=== PATIENT | female | born 1945 | race Caucasian/White ===

== ENCOUNTER → 2017-02-17 | Outpatient (CLI) | payer MEDICARE, OTHER ==
--- NOTE | 2017-02-17 16:26 | RAD ---
CT of the lumbar spine without contrast, 02/17/2017: History: Back pain, radiculopathy Noncontrast scans were obtained with multiplanar reconstructions produced. There is a radiopaque disc spacer at the L5-S1 level. There are surgical clamps related to the spinous processes at L2-3, L3-4 and L4-5. The lumbar vertebral heights are well-maintained. No acute fracture is identified. There is a mild spondylolisthesis at L4-5. Spinal stimulator leads extend into the thoracic spinal canal. At L1-2 there is mild posterior disc bulging. The central spinal canal and neural foramina are well maintained. At L2-3 there is a vacuum disc phenomena. There is moderate posterior disc bulging as well as posterior marginal spurring which is most prominent laterally on both sides. There are moderate degenerative changes involving the facet joints bilaterally with posterior ligamentous thickening. The combination of findings is causing mild central spinal stenosis in a triangular configuration with the thecal sac measuring 7 mm in AP diameter at the midline. There is moderate bilateral inferior foraminal encroachment, worse on the left. At L3-4 there is moderate broad-based posterior disc bulging. There are moderate degenerative changes involving the facet joints with posterior ligamentous thickening. There is mild associated central spinal stenosis, similar to that seen at L2-3. There is mild inferior foraminal narrowing bilaterally. At L4-5 there is severe disc space narrowing with a vacuum disc phenomena and prominent spurs. There is moderate broad-based posterior disc protrusion. There are extensive hypertrophic degenerative changes involving the facet joints. The combination of findings is causing moderate central spinal stenosis in a triangular configuration as well as severe left foraminal encroachment and moderate right foraminal encroachment. At L5-S1 the disc space is fused posteriorly. There is a moderate posterior spurring at the disc level. There are moderate degenerative changes involving the facet joints. The thecal sac is not significantly stenotic. The neural foramina are widely patent at this level. There is moderate aortoiliac calcific plaquing. The visualized paraspinal soft tissues are otherwise unremarkable. IMPRESSION: 1. Postsurgical change in the lower lumbar spine. 2. Moderately severe multilevel degenerative change as described above. 3. Mild spondylolisthesis due to facet joint arthropathy at L4-5 which in conjunction with severe degenerative disc disease and posterior disc protrusion is causing moderate central spinal stenosis and bilateral foraminal narrowing at L4-5. 4. Mild central spinal stenosis at L2-3 and L3-4. PQRS Compliance Statement: One or more of the following individualized dose reduction techniques were utilized for this examination: 1. Automated exposure control 2. Adjustment of the mA and/or kV according to patient size 3. Use of iterative reconstruction technique
== END | disposition home or self-care (01) ==
LOC: CT 13:33
PROVIDERS: ATTEND Family Medicine
DX: M51.26 Other intervertebral disc displacement, lumbar region (principal); M54.16 Radiculopathy, lumbar region; M51.36 Other intervertebral disc degeneration, lumbar region; M48.06 Spinal stenosis, lumbar region; M43.16 Spondylolisthesis, lumbar region
CPT/HCPCS: 72131

== ENCOUNTER → 2017-04-21 | Outpatient (CLI) | payer MEDICARE, OTHER ==
[~2017-04-21] MED LIST: BUPIVACAINE MPF 0.25% 10 ML VIAL. ONE; LIDOCAINE 1% PF 30 ML VIAL. ONE; methylPREDNISolone ACETATE 40 MG/ML VIAL. ONE
== END | disposition home or self-care (01) ==
LOC: SURG 09:15
PROVIDERS: ATTEND Anesthesiology Pain Medicine
DX: M47.816 Spondylosis without myelopathy or radiculopathy, lumbar region (principal); J44.9 Chronic obstructive pulmonary disease, unspecified; I10 Essential (primary) hypertension; M19.91 Primary osteoarthritis, unspecified site; E11.9 Type 2 diabetes mellitus without complications; Z90.710 Acquired absence of both cervix and uterus; Z98.890 Other specified postprocedural states
CPT/HCPCS: 64493; 64494; J1030; J2001; J3490

== ENCOUNTER → 2017-08-24 | Outpatient (CLI) | payer MEDICARE, OTHER ==
[~2017-08-24] MED LIST changes: +ALBU2.5V14 NEB; +ALEN70TA3 PO; +ASPI-630 PO; +ATOR10TA PO; -BUPIVACAINE MPF 0.25% 10 ML VIAL. ONE; +DIGO0.12 PO; +DULO20CA50 PO; +FERR89TA PO; +GLIM1TAB2 PO; +INSU100C SQ; +INSU100I13 SQ; +IOHEXOL 240 MG/ML 50ML VIAL. ONE; +IOHEXOL 240 MG/ML 50ML VIAL. PO ONE; +IOHEXOL 300 MG/ML 75 ML VIAL. IV ONE; -LIDOCAINE 1% PF 30 ML VIAL. ONE; +MELO7.5T29 PO; +OMEP10CA3 PO; +PREG20SO PO; +TAPE50TA10 PO; +TIOT18CA IH; +TRAZ50TA15 PO; +VARE0.5T PO; -methylPREDNISolone ACETATE 40 MG/ML VIAL. ONE
[2017-08-24 12:34] LABS: BASO # 0.4 x10^3/uL (0.0-0.2); BASO % 3 % (0-3); EOS # 0.6 x10^3/uL (0.0-0.7); EOS % 5 % (0-3); HEMATOCRIT 44.7 % (36.0-47.0); HEMOGLOBIN 14.6 g/dL (12.0-15.5); LYMPH # 2.5 x10^3/uL (1.0-4.8); LYMPH % 23 % (24-48); MEAN CORPUSCULAR HEMOGLOBIN 28 pg (25-35); MEAN CORPUSCULAR HGB CONC 33 g/dL (31-37); MEAN CORPUSCULAR VOLUME 87 fL (79-100); MONO # 0.8 x10^3/uL (0.0-1.1); MONO % 7 % (0-9); NEUT # 6.9 x10^3uL (1.8-7.7); NEUT % 62 % (31-73); PLATELET COUNT 295 x10^3/uL (140-400); RED BLOOD COUNT 5.13 x10^6/uL (3.50-5.40); RED CELL DISTRIBUTION WIDTH 15.1 % (11.5-14.5); WHITE BLOOD COUNT 11.2 x10^3/uL (4.0-11.0)
[2017-08-24 12:45] LABS: ALBUMIN 3.3 g/dL (3.4-5.0); ALBUMIN/GLOBULIN RATIO 0.9 (1.0-1.7); CALCIUM 9.2 mg/dL (8.5-10.1); CREATININE 0.9 mg/dL (0.6-1.0); GFR 61.9; TOTAL BILIRUBIN 0.4 mg/dL (0.2-1.0); TOTAL PROTEIN 6.8 g/dL (6.4-8.2)
--- NOTE | 2017-08-24 12:56 | RAD ---
Examination: 2 views of the chest History: History of COPD Comparison: 08/29/2014 Findings The cardiomediastinal silhouette grossly appears unremarkable. Mild prominent appearing interstitial lung markings grossly similar to prior exam. Left lung base linear scarring changes are similar to prior exam. Spinal stimulator leads identified in the mid thoracic vertebral level. Impression: No acute cardiopulmonary findings.
--- NOTE | 2017-08-24 14:04 | RAD ---
Examination: CT of the abdomen pelvis with oral and IV contrast History: History of abdominal pain, Crohn's disease Comparison: 03/02/2013 Technique: Axial CT images of the abdomen pelvis performed with oral and IV contrast. Coronal and sagittal reformats are performed PQRS Compliance Statement: One or more of the following individualized dose reduction techniques were utilized for this examination: 1. Automated exposure control 2. Adjustment of the mA and/or kV according to patient size 3. Use of iterative reconstruction technique Findings: Minimal bibasal lung airspace opacities likely atelectasis. No evidence of free air identified in the abdomen. The visualized liver, spleen, adrenals grossly appears unremarkable. The gallbladder is mildly distended. The stomach is mildly distended. The small bowel is nondilated. Feces and gas noted throughout the colon. Prior surgical changes identified in the sigmoid colon and in the right colon region. The urinary bladder is mildly distended. The bilateral kidneys enhance symmetrically. The visualized pancreas grossly appears unremarkable. The gallbladder is mildly distended. Moderate aortic atherosclerosis. Moderate degenerative changes lumbar spine. Spinal stimulator leads are identified. Small anterior abdominal wall ventral hernia is identified containing an urinary bladder diverticulum in the midline. Impression: 1. No acute intra-abdominal findings
== END | disposition home or self-care (01) ==
LOC: CT 12:01
PROVIDERS: ATTEND Family Medicine
DX: J44.9 Chronic obstructive pulmonary disease, unspecified (principal); K50.112 Crohn's disease of large intestine with intestinal obstruction; N32.89 Other specified disorders of bladder; K82.8 Other specified diseases of gallbladder; I70.0 Atherosclerosis of aorta
CPT/HCPCS: 36415; 71046; 74177; 80053; 85025; Q9966; Q9967

== ENCOUNTER → 2017-09-13 | Outpatient (CLI) | payer MEDICARE, OTHER ==
[~2017-09-13] MED LIST changes: -IOHEXOL 240 MG/ML 50ML VIAL. ONE; -IOHEXOL 240 MG/ML 50ML VIAL. PO ONE; -IOHEXOL 300 MG/ML 75 ML VIAL. IV ONE
--- NOTE | 2017-09-13 11:21 | RAD ---
Examination: CT chest without contrast History: History of COPD, shortness of breath Comparison: 08/14/2015 Technique: Axial CT images of the chest were performed without contrast. Coronal and sagittal reformats were performed PQRS Compliance Statement: One or more of the following individualized dose reduction techniques were utilized for this examination: 1. Automated exposure control 2. Adjustment of the mA and/or kV according to patient size 3. Use of iterative reconstruction technique Findings: There is a 1.5 cm hypodense nodule identified in the right lobe of thyroid gland appears slightly increased in size compared to prior exam. The central airways are patent. Small subcentimeter mediastinal lymph nodes are identified. Few calcified mediastinal and right hilar lymph nodes identified. The heart size grossly appears unremarkable. Linear bibasal lung airspace opacity likely atelectasis or scarring changes. There is a tiny 4 mm nodule identified in the left upper lobe of the lung bases visualized on series 2 image #39. There is a 6 mm nodule identified in the lingula of the left lung base visualized on series 2 image #49. The visualized noncontrasted liver, spleen, adrenals grossly appears unremarkable. Mild coronary artery calcifications. Moderate degenerative changes thoracic spine. Spinal stimulator leads identified in the thoracic spine region. Impression: 1. 6 mm pulmonary nodule identified in the lingula of the left lung. A 4 mm pulmonary nodule identified in the left upper lobe of the lung. Follow-up per Fleischner guidelines with a follow-up CT in 6-12 months. 2. Bibasal lung linear airspace opacities likely atelectasis or scarring changes. 3. 1.5 cm hypodense nodule identified in the right love of the thyroid gland. Follow-up ultrasound thyroid is recommended.
== END | disposition home or self-care (01) ==
LOC: CT 10:46
PROVIDERS: ATTEND Family Medicine
DX: J44.9 Chronic obstructive pulmonary disease, unspecified (principal); R91.1 Solitary pulmonary nodule
CPT/HCPCS: 71250

== ENCOUNTER → 2017-09-25 | Outpatient (CLI) | payer MEDICARE, OTHER ==
--- NOTE | 2017-09-25 13:36 | RAD ---
Thyroid ultrasound, 09/25/2017: History: Thyroid nodule on CT study The thyroid gland were suboptimally delineated due to the patient's body habitus. The right lobe of the gland measures 3.6 x 1.7 x 1.4 cm while the left lobe of the gland measures 3.2 x 1.6 x 1.6 cm. There is a hypoechoic nodule in the posterior aspect of the lower pole of the right lobe of the gland. It is best defined anteriorly where it demonstrates smooth margins. It measures 1.6 x 1.5 x 1.9 cm. There is a suggestion of internal color flow compatible with a solid nodule. It appears to be wider than tall. No calcifications are seen. No other thyroid nodule is evident. IMPRESSION: 1.9 cm right thyroid nodule as described above. The sonographic features are nonspecific. Ultrasound guided biopsy should be considered, however, that may be technically problematic due to the patient's body habitus and the position of the nodule. Sonographic surveillance would be a reasonable alternative.
== END | disposition home or self-care (01) ==
LOC: US 09:37
PROVIDERS: ATTEND Family Medicine
DX: E04.1 Nontoxic single thyroid nodule (principal)
CPT/HCPCS: 76536

== ENCOUNTER → 2017-10-31 | Outpatient (CLI) | payer MEDICARE, OTHER ==
--- NOTE | 2017-10-31 16:20 | RAD ---
MR#: [id number] Date of Study: 10/31/2017 Ordering Physician: MARCELINA CHENG, Referring Physician: MARCELINA CHENG, Tech: Gudelia Soto RDMS, RVT, RTR APPROVED REPORT Patient Location: OUT-PATIENT Laterality:Bilateral Indications Bruit Grayscale images of the bilateral common carotid, internal carotid and external carotid vessels do no t reveal any evidence of obstructive plaque. Spectral waveforms and color Doppler/velocities are grossly within normal limits in the bilateral int ernal carotid arteries. The right external coronary artery velocity is mildly elevated. The bilateral vertebral velocities are antegrade. Bilateral ICA to CCA ratios are within normal limits. Critical Notification Critical Value: No <Conclusion> 1. No evidence of significant carotid arterial disease. Signed by : Marcelina Cheng, Electronically Approved : 10/31/2017 16:18:56
--- NOTE | 2017-10-31 16:33 | RAD ---
MR#: [id number] Date of Study: 10/31/2017 Ordering Physician: MARCELINA CHENG, Referring Physician: MARCELINA CHENG, Tech: Gudelia Soto RDMS, RVT, RTR APPROVED REPORT Patient Location: OUT-PATIENT Indications AAA Grayscale images of the abdominal aorta and aortic bifurcation reveal mild to moderate atheroscleroti c plaque. No high-grade obstructive lesion is noted. No evidence of aneurysm or dissection is evident . The transverse dimensions in the proximal, mid and distal aorta are 1.5, 1.7 and 1.4 cm respectivel y. Critical Notification Critical Value: No <Conclusion> 1. No evidence of abdominal aortic aneurysm on ultrasound testing. Signed by : Marcelina Cheng, Electronically Approved : 10/31/2017 16:32:40
== END | disposition home or self-care (01) ==
LOC: US 13:07
PROVIDERS: ATTEND Internal Medicine Cardiovascular Disease
DX: I48.0 Paroxysmal atrial fibrillation (principal); I10 Essential (primary) hypertension; E11.9 Type 2 diabetes mellitus without complications; R09.89 Other specified symptoms and signs involving the circulatory and respiratory systems
CPT/HCPCS: 76770; 93880

== ENCOUNTER → 2017-10-31 | Outpatient (CLI) | payer MEDICARE, OTHER ==
--- NOTE | 2017-10-31 14:33 | CARD ---
MR#: [id number] Date of Study: 10/31/2017 Ordering Physician: MARCELINA CHENG, Referring Physician: MARCELINA CHENG, Tech: REMA Rayo APPROVED REPORT EXAM: Two-dimensional and M-mode echocardiogram with Doppler and color Doppler. Other Information Quality : FairHR: 60bpm INDICATION Atrial Fibrillation 2D DIMENSIONS RVDd2.5 (2.9-3.5cm)Left Atrium(2D)3.1 (1.6-4.0cm) IVSd1.5 (0.7-1.1cm)Aortic Root(2D)2.7 (2.0-3.7cm) LVDd3.7 (3.9-5.9cm)LVOT Diameter1.9 (1.8-2.4cm) PWd1.4 (0.7-1.1cm)LVDs2.4 (2.5-4.0cm) FS (%) 35.3 %SV37.1 ml LVEF(%)65.6 (>50%) Aortic Valve AoV Peak Cj.214.7cm/sAoV VTI37.9cm AO Peak GR.18.4mmHgLVOT Peak Cj.148.9cm/s LVOT VTI 26.49cmAO Mean GR.11mmHg MATTY (VMAX)1.16hz4UMS (VTI)1.92cm2 Mitral Valve MV E Impsrohy71.2cm/sMV DECEL CZTH722gn MV A Cdkodtci247.3cm/sE/A Ratio0.7 Pulmonary Valve PV Peak Ymezrdna859.0cm/sPV Peak Grad.10mmHg Tricuspid Valve TR P. Urbizbie349gr/sTR Peak Gr.7mmHg Pulmonary Vein S1 Cbztedpm31.0cm/sD2 Pytknblo89.7cm/s LEFT VENTRICLE The left ventricle is minimum normal size. There is moderate concentric left ventricular hypertrophy. The left ventricular systolic function is normal. The ejection fraction is estimated at 60-65%. Ther e is normal LV segmental wall motion. Transmitral Doppler flow pattern is Grade I-abnormal relaxation pattern. RIGHT VENTRICLE The right ventricle cavity is small. The right ventricle is mildly hypertrophied. The right ventricul ar systolic function is normal. ATRIA The left atrium size is normal. The right atrium size is normal. The interatrial septum is intact wit h no evidence for an atrial septal defect or patent foramen ovale as noted on 2-D or Doppler imaging. AORTIC VALVE The aortic valve is thickened but opens well. Doppler and Color Flow revealed no significant aortic r egurgitation. There is no significant aortic valvular stenosis. There is no aortic valvular vegetatio n. MITRAL VALVE The mitral valve is thickened but opens well. There is no evidence of mitral valve prolapse. There is no mitral valve stenosis. Doppler and Color Flow revealed no mitral valve regurgitation noted. TRICUSPID VALVE The tricuspid valve leaflets are thickened , but open well. Doppler and Color Flow revealed no tricus pid valve regurgitation noted. There is no tricuspid valve prolapse or vegetation. There is no tricus pid valve stenosis. PULMONIC VALVE The pulmonic valve is not well visualized. Doppler and Color Flow revealed no pulmonic valvular regur gitation. There is no pulmonic valvular stenosis. GREAT VESSELS The aortic root is normal in size. The IVC is normal in size and collapses >50% with inspiration. PERICARDIAL EFFUSION There is no pleural effusion. There is no evidence of significant pericardial effusion. Critical Notification Critical Value: No <Conclusion> The left ventricular systolic function is normal. The ejection fraction is estimated at 60-65%. There is normal LV segmental wall motion. Transmitral Doppler flow pattern is Grade I-abnormal relaxation pattern. There is no evidence of significant pericardial effusion. Signed by : Jerzy May, Electronically Approved : 10/31/2017 14:32:28
== END | disposition home or self-care (01) ==
LOC: ECHO 12:52
PROVIDERS: ATTEND Internal Medicine Cardiovascular Disease
DX: I48.0 Paroxysmal atrial fibrillation (principal); I10 Essential (primary) hypertension; E11.9 Type 2 diabetes mellitus without complications
CPT/HCPCS: 93306

== ENCOUNTER → 2018-01-04 | Outpatient (CLI) | payer MEDICARE, OTHER ==
--- NOTE | 2018-01-04 15:59 | RAD ---
DATE: 01/04/2018 EXAM: MAMMO BRIDGET SCREENING BILATERAL HISTORY: Routine screening COMPARISON: 09/20/2016 This study was interpreted with the benefit of Computerized Aided Detection (CAD). The breast parenchyma shows scattered fibroglandular densities. Breast parenchyma level B. FINDINGS: 2-D and 3-D tomosynthesis imaging was performed in CC and MLO projections. No new or enlarging breast densities are seen. Scattered benign type calcifications are present. No suspicious microcalcifications have developed. IMPRESSION: Stable mammograms without evidence of malignancy. BI-RADS CATEGORY: 2 BENIGN FINDING(S) RECOMMENDED FOLLOW-UP: 12M 12 MONTH FOLLOW-UP PQRS compliance statement: Patient information was entered into a reminder system with a target due date for the next mammogram. Mammography is a sensitive method for finding small breast cancers, but it does not detect them all and is not a substitute for careful clinical examination. A negative mammogram does not negate a clinically suspicious finding and should not result in delay in biopsying a clinically suspicious abnormality. "Our facility is accredited by the [employer] Mammography Program."
== END | disposition home or self-care (01) ==
LOC: MAMMO 10:05
PROVIDERS: ATTEND Family Medicine
DX: Z12.31 Encounter for screening mammogram for malignant neoplasm of breast (principal); I10 Essential (primary) hypertension; E11.9 Type 2 diabetes mellitus without complications; J44.9 Chronic obstructive pulmonary disease, unspecified
CPT/HCPCS: 77063; 77067

== ENCOUNTER 2018-06-08 18:51 | Inpatient (IN) | payer MEDICARE, OTHER ==
[~2018-06-08] VITALS: Ht 152.4 cm; Wt 81.0 kg
[~2018-06-08 18:51] MED LIST changes: +TRAZ-85 PO; -TRAZ50TA15 PO
--- NOTE | 2018-06-08 18:54 | ED.ADGEN ---
Past History Past Medical History: COPD, Diabetes, Other Adult General Chief Complaint Chief Complaint ".. I just feel terrible...short of breath.. dizzy.. yes... I still smoke.. ".. "I got so short of breath.. I got so dizzy.. my heart was so fast..." HPI HPI Patient is a 72 year old female who presents with above hx and complaints increased dyspnea and wheezing. Patient does continue to smoke. Patient has had some productive sputum. Patient states she became so short of breath that she became dizzy. Patient complaining of rapid heart rate. Patient denies any change in meds, travel or specific ill contacts. Review of Systems Review of Systems Constitutional: Denies fever or chills [] Eyes: Denies change in visual acuity, redness, or eye pain [] HENT: Denies nasal congestion or sore throat [] Respiratory: Complaints of cough and shortness of breath [] Cardiovascular: No additional information not addressed in HPI [] GI: Denies abdominal pain, nausea, vomiting, bloody stools or diarrhea [] : Denies dysuria or hematuria [] Musculoskeletal: Denies back pain or joint pain [] Integument: Denies rash or skin lesions [] Neurologic: Denies headache, focal weakness or sensory changes []complaints of dizziness Endocrine: Denies polyuria or polydipsia [] All other systems were reviewed and found to be within normal limits, except as documented in this note. Family History Family History Noncontributory Current Medications Current Medications Current Medications Medications (Trade) Dose Ordered Sig/Court Start Time Stop Time Status Last Admin Dose Admin Acetaminophen (Tylenol) 500 mg STK-MED ONCE 06/08/18 20:24 06/08/18 20:25 DC Albuterol/ Ipratropium (Duoneb) 3 ml RTQID 06/09/18 08:00 06/10/18 07:59 Aspirin (Children'S Aspirin) 81 mg DAILY 06/09/18 09:00 Azithromycin (Zithromax) 250 mg QHS 06/09/18 21:00 Ceftriaxone Sodium 1 gm/ Sodium Chloride 50 ml @ 100 mls/hr QHS 06/09/18 21:00 Ceftriaxone Sodium (Rocephin) 1 gm STK-MED ONCE 06/08/18 23:47 06/08/18 23:48 DC Enoxaparin Sodium (Lovenox 100mg Syringe) 90 mg BID 06/09/18 09:00 Info (Anti-Coagulation Monitoring By Pharmacy) 1 each PRN DAILY PRN 06/09/18 00:15 Info (Do NOT chart on this entry -- for MONITORING) 1 each PRN DAILY PRN 06/08/18 22:00 06/10/18 21:59 Iohexol (Omnipaque 300 Mg/ml) 75 ml 1X ONCE 06/08/18 22:30 06/08/18 22:31 DC 06/08/18 22:03 75 ML Lactated Ringer's 1,000 ml @ 1,000 mls/hr 1X ONCE 06/08/18 23:00 06/08/18 23:59 DC Methylprednisolone Sodium Succinate (SOLU-Medrol 125MG VIAL) 125 mg DAILY 06/09/18 09:00 Morphine Sulfate (Morphine 10mg Syringe) 10 mg STK-MED ONCE 06/08/18 23:28 06/08/18 23:29 DC Ondansetron HCl (Zofran) 4 mg PRN Q4HRS PRN 06/08/18 23:45 06/09/18 23:44 Sodium Chloride 50 ml @ As Directed STK-MED ONCE 06/08/18 23:47 06/08/18 23:48 DC See nursing for home meds Allergies Allergies Allergies Coded Allergies Type Severity Reaction Last Updated Verified adalimumab Allergy Unknown 08/24/17 Yes mesalamine Allergy Unknown 08/24/17 Yes Physical Exam Physical Exam Constitutional: Well developed, well nourished, no acute distress, non-toxic appearance. [] HENT: Normocephalic, atraumatic, bilateral external ears normal, oropharynx moist, no oral exudates, nose normal. [] Eyes: PERRLA, EOMI, conjunctiva normal, no discharge. [] Neck: Normal range of motion, no tenderness, supple, no stridor. [] Cardiovascular tachycardia Heart rate regular rhythm, no murmur []Occasional PVC per monitor. Lungs & Thorax: Bilateral breath sounds equal apexes scattered wheezes on auscultation [] Abdomen: Bowel sounds normal, soft, no tenderness, no masses, no pulsatile masses. [] Obese. Skin: Warm, dry, no erythema, no rash. [] Back: No tenderness, no CVA tenderness. [] Extremities: No tenderness, no cyanosis, no clubbing, ROM intact, bilateral leg edema. [] Neurologic: Alert and oriented X 3, normal motor function, normal sensory function, no focal deficits noted. []DTRs +2 at patella. Manager Actuarial equal. Psychologic: Affect anxious, judgement normal, mood normal. [] Current Patient Data Vital Signs Vital Signs Date Time Temp Pulse Resp B/P (MAP) Pulse Ox O2 Delivery O2 Flow Rate FiO2 06/09/18 00:11 85 105/41 (62) 91 Nasal Cannula 3.0 06/08/18 23:31 18 06/08/18 23:14 98.4 Lab Results Laboratory Tests Test 06/08/18 19:20 06/08/18 19:45 Urine Collection Type Unknown Urine Color Yellow Urine Clarity Clear Urine pH 7.0 Urine Specific [place] 1.020 Urine Protein Neg (NEG-TRACE) Urine Glucose (UA) Neg mg/dL (NEG) Urine Ketones (Stick) Neg mg/dL (NEG) Urine Blood Neg (NEG) Urine Nitrite Neg (NEG) Urine Bilirubin Neg (NEG) Urine Urobilinogen Dipstick 0.2 mg/dL (0.2 mg/dL) Urine Leukocyte Esterase Neg (NEG) Urine RBC 0 /HPF (0-2) Urine WBC 0 /HPF (0-4) Urine Squamous Epithelial Cells Few /LPF Urine Transitional Epithelial Cells Occ /LPF Urine Renal Epithelial Cells Occ /LPF Urine Amorphous Sediment Present /HPF Urine Bacteria Few /HPF (0-FEW) Urine Opiates Screen Pos (NEG) Urine Methadone Screen Neg (NEG) Urine Barbiturates Neg (NEG) Urine Phencyclidine Screen Neg (NEG) Urine Amphetamine/Methamphetamine Neg (NEG) Urine Benzodiazepines Screen Neg (NEG) Urine Cocaine Screen Neg (NEG) Urine Cannabinoids Screen Neg (NEG) Urine Ethyl Alcohol Neg (NEG) White Blood Count 8.3 x10^3/uL (4.0-11.0) Red Blood Count 4.58 x10^6/uL (3.50-5.40) Hemoglobin 12.6 g/dL (12.0-15.5) Hematocrit 39.6 % (36.0-47.0) Mean Corpuscular Volume 86 fL (79-100) Mean Corpuscular Hemoglobin 28 pg (25-35) Mean Corpuscular Hemoglobin Concent 32 g/dL (31-37) Red Cell Distribution Width 16.6 % (11.5-14.5) H Platelet Count 233 x10^3/uL (140-400) Neutrophils (%) (Auto) 66 % (31-73) Lymphocytes (%) (Auto) 21 % (24-48) L Monocytes (%) (Auto) 11 % (0-9) H Eosinophils (%) (Auto) 1 % (0-3) Basophils (%) (Auto) 1 % (0-3) Neutrophils # (Auto) 5.5 x10^3uL (1.8-7.7) Lymphocytes # (Auto) 1.7 x10^3/uL (1.0-4.8) Monocytes # (Auto) 0.9 x10^3/uL (0.0-1.1) Eosinophils # (Auto) 0.1 x10^3/uL (0.0-0.7) Basophils # (Auto) 0.1 x10^3/uL (0.0-0.2) Prothrombin Time 10.7 SEC (9.4-11.4) Prothrombin Time INR 1.1 (0.9-1.1) PTT 29 SEC (23-33) D-Dimer (Edel) 2.41 mg/L (0.00-0.50) H Sodium Level 135 mmol/L (136-145) L Potassium Level 4.0 mmol/L (3.5-5.1) Chloride Level 100 mmol/L (98-107) Carbon Dioxide Level 28 mmol/L (21-32) Anion Gap 7 (6-14) Blood Urea Nitrogen 12 mg/dL (7-20) Creatinine 1.0 mg/dL (0.6-1.0) Estimated GFR (Cockcroft-Gault) 54.7 Glucose Level 207 mg/dL (70-99) H Lactic Acid Level 1.5 mmol/L (0.4-2.0) Calcium Level 9.1 mg/dL (8.5-10.1) Magnesium Level 2.0 mg/dL (1.8-2.4) Total Bilirubin 0.6 mg/dL (0.2-1.0) Direct Bilirubin 0.2 mg/dL (0.0-0.2) Aspartate Amino Transferase (AST) 25 U/L (15-37) Alanine Aminotransferase (ALT) 16 U/L (14-59) Alkaline Phosphatase 122 U/L (46-116) H Creatine Kinase 69 U/L (26-192) Troponin I Quantitative < 0.017 ng/mL (0-0.055) EN-Sxf-W-Type Natriuretic Peptide 720 pg/mL (0-124) H Total Protein 6.7 g/dL (6.4-8.2) Albumin 2.8 g/dL (3.4-5.0) L Lipase 163 U/L (73-393) Influenza Type A (Rapid) Negative (NEGATIVE) Influenza Type B (Rapid) Negative (NEGATIVE) EKG EKG My interpretation of EKG shows a sinus rhythm at 96 bpm. There is right bundle branch block. There is some nonspecific anterior lateral changes. No findings acute STEMI of contralateral changes.[] Radiology/Procedures Radiology/Procedures I interpretation of chest x-ray shows some bilateral basilar opacities/ atelectasis/infiltrate. CT of chest shows no large cerebellar segmental PEs. Does have bilateral basilar atelectasis, has nodes along the length sciatic of the gastrohepatic ligament. Has a right middle lobe nodule. See formal report when available. Dictation of CT of head shows no shift, mass, edema, bleed, or fracture. Does have white matter chronic changes Course & Med Decision Making Course & Med Decision Making Pertinent Labs and Imaging studies reviewed. (See chart for details) Patient to be admitted to Dr. Nova further evaluation and treatment. [] Final Impression Final Impression 1. Dyspnea 2. COPD exacerbation 3. DM-207 4. Malnutrition 2.8 albumin 5. Elevated D-dimer[] 6. Gastrohepatic ligament lymph nodes reactive versus metastatic 7. Dizzy Dragon Disclaimer Dragon Disclaimer This electronic medical record was generated, in whole or in part, using a voice recognition dictation system. IRASEMA BUNN MD Jun 08, 2018 18:54
--- NOTE | 2018-06-08 19:34 | EKG ---
[address] [address] Test Date: 2018-06-08 Test Time: 19:32:18 Pat Name: GAYLE MESSER Department: Room: Gender: F [employer]: : 1945 Requested By: IRASEMA BUNN Order Number: [id number] Reading MD: Shashi Fried MD Measurements Intervals [place] Rate: 96 P: 63 NM: 174 QRS: 90 QRSD: 106 T: 27 QT: 356 QTc: 451 Interpretive Statements SINUS RHYTHM RBBB NON-SPECIFIC ST/T CHANGES Electronically Signed On 06-11-2018 8:42:07 QUALITY CONTROL AUDITOR by Shashi Fried MD
--- NOTE | 2018-06-08 19:36 | RAD ---
PQRS Compliance statement: One or more of the following individualized dose reduction techniques were utilized for this examination: 1. Automated exposure control. 2. Adjustment of the mA and/or kV according to patient size. 3. Use of iterative reconstruction technique. Indication:DIZZINESS, HX OF STROKE TECHNIQUE: CT head without IV contrast COMPARISON:None FINDINGS: No pathologic extra-axial or intra-axial fluid collection. Mild diffuse cerebral atrophy with ex vacuo dilation of the ventricles. The basal cisterns are within normal limits. No focal loss of schulte-white differentiation. No acute intracranial bleed. Orbits within normal limits. No suspicious calvarial lesion. Visualized paranasal sinuses and mastoid air cells are clear. IMPRESSION: 1. No acute intracranial process. If concern for acute ischemic stroke is high, please consider MRI brain. Electronically signed by: Yannick Newell DO (06/08/2018 7:33 PM) [employer]
[2018-06-08 20:09] LABS: BASO # 0.1 x10^3/uL (0.0-0.2); BASO % 1 % (0-3); EOS # 0.1 x10^3/uL (0.0-0.7); EOS % 1 % (0-3); HEMATOCRIT 39.6 % (36.0-47.0); HEMOGLOBIN 12.6 g/dL (12.0-15.5); LYMPH # 1.7 x10^3/uL (1.0-4.8); LYMPH % 21 % (24-48); MEAN CORPUSCULAR HEMOGLOBIN 28 pg (25-35); MEAN CORPUSCULAR HGB CONC 32 g/dL (31-37); MEAN CORPUSCULAR VOLUME 86 fL (79-100); MONO # 0.9 x10^3/uL (0.0-1.1); MONO % 11 % (0-9); NEUT # 5.5 x10^3uL (1.8-7.7); NEUT % 66 % (31-73); PLATELET COUNT 233 x10^3/uL (140-400); RED BLOOD COUNT 4.58 x10^6/uL (3.50-5.40); RED CELL DISTRIBUTION WIDTH 16.6 % (11.5-14.5); WHITE BLOOD COUNT 8.3 x10^3/uL (4.0-11.0)
[2018-06-08] MEDS: IV RINGERS SOLUTION,LACTATED 1,000 ML IV SCH (20:16)
[2018-06-08 20:17] LABS: BARBITURATES NEG (NEG); BENZODIAZEPINES NEG (NEG); CANNABINOIDS NEG (NEG); COCAINE NEG (NEG); METHADONE NEG (NEG); OPIATES POS (NEG); PHENCYCLIDINE NEG (NEG)
[2018-06-08 20:21] LABS: AMPHETAMINE/METHAMPHETAMINE NEG (NEG)
[2018-06-08] MEDS ORDERED: ACETAMINOPHEN 500 MG TABLET PO ONE ×2 (20:24→20:45)
[2018-06-08 20:29] LABS: INFLUENZA A PATIENT NEGATIVE (NEGATIVE); INFLUENZA B PATIENT NEGATIVE (NEGATIVE)
[2018-06-08 20:30] LABS: ALBUMIN 2.8 g/dL (3.4-5.0); CALCIUM 9.1 mg/dL (8.5-10.1); DIRECT BILIRUBIN 0.2 mg/dL (0.0-0.2); GFR 54.7; TOTAL BILIRUBIN 0.6 mg/dL (0.2-1.0); TOTAL PROTEIN 6.7 g/dL (6.4-8.2)
[2018-06-08 21:05] LABS: BACTERIA,URINE FEW /HPF (0-FEW); BILIRUBIN,URINE NEG (NEG); CLARITY,URINE CLEAR; COLOR,URINE YELLOW; GLUCOSE,URINE NEG (NEG); NITRITE,URINE NEG (NEG); RBC,URINE 0 /HPF (0-2); SQUAMOUS EPITHELIAL CELL,UR FEW /LPF; UROBILINOGEN,URINE 0.2 mg/dL (0.2 mg/dL); WBC,URINE 0 /HPF (0-4)
[2018-06-08 21:06] LABS: AMORPHOUS SEDIMENT,UR PRESENT /HPF
--- NOTE | 2018-06-08 21:44 | RAD ---
PA and lateral chest radiograph. History: Back pain, dizziness. Comparison: August 24, 2017. Findings: Cardiomediastinal silhouette is within normal limits for size. Bilateral lung flanagan appear clear without evidence of infiltrate, effusion, or pneumothorax. Aortic atherosclerosis is seen. There is mild accentuation of interstitial markings, chronic, probably mild fibrotic change. Spinal stimulator is seen. Multiple thoracic levels demonstrate marginal disc osteophytes. Lumbar spine demonstrates spinous process fusion clips. Impression: 1. No acute cardiopulmonary process. Electronically signed by: Bradley Richter MD (06/08/2018 9:41 PM) [facility]
[2018-06-08] MEDS ORDERED: CONTRAST GIVEN MC PRN (22:00)
[2018-06-08] MEDS ORDERED: IOHEXOL 300 MG/ML 75 ML VIAL. IV ONE ×2 (22:00→22:30)
[2018-06-08] MEDS ORDERED: ATORVASTATIN CA80 MG PO (22:22)
[2018-06-08] MEDS ORDERED: AZEL137S3 NS (22:30)
[2018-06-08] MEDS ORDERED: BUDE3CAP15 PO (22:31)
[2018-06-08] MEDS ORDERED: LISI-338 PO (22:40)
[2018-06-08] MEDS ORDERED: LEVO50TA5 PO (22:40)
[2018-06-08] MEDS ORDERED: DULO60CA6 PO (22:40)
[2018-06-08] MEDS ORDERED: OMEP20CA9 PO (22:40)
[2018-06-08] MEDS ORDERED: DONE10TA7 PO (22:40)
[2018-06-08] MEDS ORDERED: MORP15TA PO (22:40)
[2018-06-08] MEDS ORDERED: DEXA0.5E7 PO (22:40)
[2018-06-08] MEDS ORDERED: CYCL5TAB PO (22:40)
[2018-06-08] MEDS ORDERED: PREG150C PO (22:42)
[2018-06-08] MEDS ORDERED: ocean nasal spray INH (22:43)
--- NOTE | 2018-06-08 22:44 | RAD ---
PQRS Compliance statement: One or more of the following individualized dose reduction techniques were utilized for this examination: 1. Automated exposure control. 2. Adjustment of the mA and/or kV according to patient size. 3. Use of iterative reconstruction technique. Indication:DIZZINESS, ELEVATED DDIMER, SHORT OF AIR, 120 MLS OMNI 300 TOTAL. INJECTED TWICE OKAY PER DR CALIX DUE TO 1ST SCAN NOT BEING DIAGNOSTIC. TECHNIQUE: CT angiogram of the chest with IV contrast with multiplanar MIP reformats. COMPARISON:None FINDINGS: Suboptimal PE study for evaluation of subsegmental arteries. The central and segmental pulmonary arteries demonstrate no evidence of filling defects. Heart is normal in size. No pericardial or pleural effusion. 1.9 cm right posterior thyroid lobe nodule is seen. No enlarged axillary, mediastinal or hilar adenopathy. Calcified mediastinal and right hilar lymph nodes are seen. Central airways are patent. Subsegmental atelectasis is seen in the bilateral lung bases. Stable 3 mm subpleural nodule in the right middle lobe (series 12 image 72). Mild diffuse atherosclerotic disease of the thoracic aorta. Visualized sections through the liver, spleen within normal limits. Multiple enlarged enmanuel hepatis lymph nodes are seen, the largest measuring 2.7 x 1.8 cm. Gastrohepatic ligament recess lymph node is seen measuring 2.1 x 1.2 cm. No suspicious bony lesion. Multilevel degenerative disc disease is seen in the thoracic spine. IMPRESSION: The study was repeated twice due to suboptimal imaging the first time. Please adequately hydrated the patient. 1. Slightly suboptimal exam for evaluation of distal subsegmental arteries. Otherwise no central or segmental PE. 2. Mild bibasilar patchy opacities may be secondary to subsegmental atelectasis, or aspiration. 3. Enlarged partially visualized enmanuel hepatis and gastrohepatic ligament recess lymph nodes, nonspecific may be reactive or metastatic. 4. Stable right middle lobe 3 mm nodule, nonspecific. Electronically signed by: Yannick Calix DO (06/08/2018 10:41 PM) [facility]
[2018-06-08] MEDS ORDERED: TAPE100T7 PO (22:48)
[2018-06-08] MEDS ORDERED: TRAZ-86 PO (22:48)
[2018-06-08] MEDS ORDERED: AZULFIDINE (22:48)
[2018-06-08] MEDS ORDERED: SUCR1TAB35 PO (22:48)
[2018-06-08] MEDS ORDERED: IV RINGERS SOLUTION,LACTATED 1,000 ML IV ONE (23:00)
[2018-06-08] MEDS ORDERED: MORPHINE SULFATE 10 MG/ML SYRINGE. ONE (23:28)
[2018-06-08] MEDS ORDERED: AZITHROMYCIN 250 MG TABLET. PO ONE ×2 (23:45)
[2018-06-08] MEDS ORDERED: methylPREDNISolone SOD SUCC PF 125 MG/2 ML VIAL. IV ONE (23:45)
[2018-06-08] MEDS ORDERED: ENOXAPARIN ** NOTE DOSE ** SYRINGE SQ ONE (23:45)
[2018-06-08] MEDS ORDERED: MORPHINE SULFATE 10 MG/ML SYRINGE. SQ ONE (23:45)
[2018-06-08] MEDS ORDERED: ONDANSETRON PF 4 MG/2 ML VIAL. IV PRN (23:45)
[2018-06-08] MEDS ORDERED: cefTRIAXone SODIUM 1 GM VIAL IV ONE (23:47)
[2018-06-08] MEDS ORDERED: IV NORMAL SALINE 50ML 50 ML ONE (23:47)
[2018-06-09] MEDS ORDERED: ANTI-COAG MONITOR BY PHARMACY. MC PRN (00:15)
[2018-06-09] MEDS: IV RINGERS SOLUTION,LACTATED 1,000 ML IV SCH (00:58)
[2018-06-09 01:08] VITALS: BP 115/67
[2018-06-09 05:36] VITALS: BP 96/63
[2018-06-09 07:16] LABS: BASO # 0.1 x10^3/uL (0.0-0.2); BASO % 1 % (0-3); EOS % 0 % (0-3); HEMATOCRIT 36.2 % (36.0-47.0); HEMOGLOBIN 11.5 g/dL (12.0-15.5); LYMPH # 1.1 x10^3/uL (1.0-4.8); LYMPH % 25 % (24-48); MEAN CORPUSCULAR HEMOGLOBIN 28 pg (25-35); MEAN CORPUSCULAR HGB CONC 32 g/dL (31-37); MEAN CORPUSCULAR VOLUME 88 fL (79-100); MONO # 0.1 x10^3/uL (0.0-1.1); MONO % 3 % (0-9); NEUT # 3.2 x10^3uL (1.8-7.7); NEUT % 71 % (31-73); PLATELET COUNT 203 x10^3/uL (140-400); RED BLOOD COUNT 4.11 x10^6/uL (3.50-5.40); RED CELL DISTRIBUTION WIDTH 16.8 % (11.5-14.5); WHITE BLOOD COUNT 4.5 x10^3/uL (4.0-11.0)
[2018-06-09 07:25] LABS: CALCIUM 8.8 mg/dL (8.5-10.1); CREATININE 0.9 mg/dL (0.6-1.0); GFR 61.7; POTASSIUM 4.5 mmol/L (3.5-5.1)
[2018-06-09] MEDS ORDERED: IPRATRPIUM/ALBUTEROL 0.5/2.5MG 3 ML NEBU. NEB SCH ×2 (08:00→12:00)
[2018-06-09] MEDS ORDERED: ASPIRIN 81 MG TAB.CHEW PO SCH ×2 (09:00→09:30)
[2018-06-09] MEDS ORDERED: methylPREDNISolone SOD SUCC PF 125 MG/2 ML VIAL. IV SCH (09:00)
[2018-06-09] MEDS ORDERED: ENOXAPARIN ** NOTE DOSE ** SYRINGE SQ SCH (09:00)
[2018-06-09] MEDS ORDERED: ENOXAPARIN 40 MG/0.4 ML SYRINGE. SQ SCH (09:15)
[2018-06-09] MEDS ORDERED: SUCRALFATE 1 GM TABLET. PO SCH (09:30)
[2018-06-09] MEDS ORDERED: LISINOPRIL 5 MG TABLET. PO SCH (09:30)
[2018-06-09] MEDS ORDERED: LEVOTHYROXINE 50 MCG TABLET PO SCH (09:30)
[2018-06-09] MEDS ORDERED: PANTOPRAZOLE 40 MG TABLET. PO SCH (09:30)
[2018-06-09] MEDS ORDERED: DEXAMETHASONE 0.5 MG TABLET PO SCH (09:30)
[2018-06-09] MEDS ORDERED: DONEPEZIL HCL 10 MG TABLET PO SCH (09:30)
[2018-06-09] MEDS ORDERED: AZELASTINE NASAL SPRAY 30ML BOTTLE. NS SCH (09:30)
[2018-06-09] MEDS ORDERED: DULoxetine HCL 60 MG CAPSULE.DR PO SCH (09:30)
[2018-06-09] MEDS ORDERED: PREGABALIN 75 MG CAPSULE PO SCH (09:30)
[2018-06-09] MEDS ORDERED: MORPHINE IR 15 MG TABLET PO SCH (09:30)
[2018-06-09] MEDS ORDERED: ALENDRONATE SODIUM 35 MG TABLET PO SCH (09:45)
[2018-06-09] MEDS ORDERED: BUDESONIDE 3 MG CAP.ER.24H. PO SCH (09:45)
[2018-06-09] MEDS ORDERED: DIGOXIN 125 MCG TABLET PO SCH (09:45)
[2018-06-09 10:12] VITALS: BP 96/63
--- NOTE | 2018-06-09 11:03 | RAD ---
Bilateral Lower extremity venous Doppler. 06/09/2018 HISTORY: Shortness of breath and elevated d-dimer COMPARISON: None. FINDINGS: Grayscale, Color and Doppler analysis of the Bilateral Lower extremity deep venous system was performed with serial graded compression and augmentation. The bilateral common femoral, femoral, and popliteal veins are widely patent with normal color Doppler imaging. Limited images of the bilateral calf veins are unremarkable. IMPRESSION: No evidence of DVT in the bilateral lower extremities. Electronically signed by: Lincoln Dorsey MD (06/09/2018 10:59 AM) [facility]
[2018-06-09] MEDS ORDERED: ALBUTEROL SULFATE 2.5 MG/3 ML NEBU. NEB SCH (12:00)
[2018-06-09] MEDS ORDERED: NON FORMULARY ITEM (Albuterol Sulfate (Albuterol Sulfate Conc Neb Soln) 1 VIAL) NEB SCH (12:00)
[2018-06-09] MEDS ORDERED: LACTOBACILLUS RHAMNOSUS GG 1 CAPSULE. PO SCH (21:00)
[2018-06-09] MEDS ORDERED: INSULIN GLARGINE 300 UNITS/3 ML INSULN.PEN. SQ SCH (21:00)
[2018-06-09] MEDS ORDERED: AZITHROMYCIN 250 MG TABLET. PO SCH (21:00)
[2018-06-09] MEDS ORDERED: traZODone 100 MG TABLET. PO SCH (21:00)
[2018-06-09] MEDS ORDERED: TAPENTADOL HCL 100 MG PO SCH (21:00)
[2018-06-09] MEDS ORDERED: VARENICLINE 0.5 MG TABLET. PO SCH (21:00)
[2018-06-09] MEDS ORDERED: CYCLOBENZAPRINE 10 MG TABLET. PO SCH (21:00)
[2018-06-09] MEDS ORDERED: ATORVASTATIN CALCIUM 20 MG TABLET PO SCH (21:00)
[2018-06-10] MEDS ORDERED: FERROUS SULFATE 325 MG TABLET. PO SCH (08:00)
[2018-06-10] MEDS ORDERED: ASPIRIN 81 MG TAB.CHEW PO SCH (08:00)
[2018-06-10] MEDS ORDERED: NON FORMULARY ITEM (Tiotropium Bromide (Spiriva) 1 CAP) IH SCH (09:00)
== END 2018-06-09 10:45 | disposition left against medical advice (07) | DRG 191 ==
LOC: ER 18:51 → 1 SOUTH 06-09 00:55
PROVIDERS: ADMIT Internal Medicine; ATTEND Internal Medicine
DX: J44.1 Chronic obstructive pulmonary disease with (acute) exacerbation (principal); E46 Unspecified protein-calorie malnutrition; E11.9 Type 2 diabetes mellitus without complications; Z88.8 Allergy status to other drugs, medicaments and biological substances; F17.210 Nicotine dependence, cigarettes, uncomplicated; Z53.21 Procedure and treatment not carried out due to patient leaving prior to being seen by health care provider; Z79.899 Other long term (current) drug therapy; Z68.34 Body mass index [BMI] 34.0-34.9, adult
CPT/HCPCS: 36415; 70450; 71046; 71275; 80048; 80076; 80307; 81001; 82550; 82947; 83605; 83690; 83735; 83880; 84443; 84484; 85025; 85379; 85610; 85730; 87040; 87804; 93005; 93970; 94640; J0456; J0696; J1650; J1815; J2270; J2930; J7120; J7620; Q9967

== ENCOUNTER → 2018-06-19 | Outpatient (CLI) | payer MEDICARE, OTHER ==
[2018-06-09 10:12] VITALS: BP 96/63
[~2018-06-19] MED LIST changes: +ATORVASTATIN CA80 MG PO; +AZEL137S3 NS; +AZULFIDINE; +BUDE3CAP15 PO; +CYCL5TAB PO; +DEXA0.5E7 PO; +DONE10TA7 PO; +DULO60CA6 PO; +LEVO50TA5 PO; +LISI-338 PO; +MORP15TA PO; +OMEP20CA9 PO; +PREG150C PO; +SUCR1TAB35 PO; +TAPE100T7 PO; +TRAZ-86 PO; +ocean nasal spray INH
--- NOTE | 2018-06-19 15:38 | RAD ---
Abdominal ultrasound, 06/19/2018: HISTORY: Abdominal pain and nausea The gallbladder is within normal limits in size. There is no sonographic evidence of cholelithiasis. The gallbladder gray are not thickened. The common hepatic duct is of normal caliber. No hepatic mass is identified. The visualized portions of pancreas are unremarkable. Several small lymph nodes type densities are seen at the enmanuel hepatis and portacaval levels. One of these densities measures 1.3 cm in short axis dimension suggesting mild adenopathy. The spleen is unremarkable. The kidneys show no evidence of obstruction. There is mild renal cortical scarring. There is calcific plaquing of the abdominal aorta without evidence of aneurysm. The inferior vena cava is unremarkable. No free fluid is evident in the abdomen. IMPRESSION: 1. Possible mild adenopathy at the enmanuel hepatis/portacaval level. CT scanning is suggested for further evaluation, if clinically indicated. 2. Otherwise no acute abdominal abnormality is detected. Electronically signed by: Sony Fay MD (06/19/2018 3:35 PM) [facility]
== END | disposition home or self-care (01) ==
LOC: US 07:57
PROVIDERS: ATTEND Family Medicine
DX: R93.2 Abnormal findings on diagnostic imaging of liver and biliary tract (principal)
CPT/HCPCS: 76700

== ENCOUNTER → 2018-07-31 | Outpatient (CLI) | payer MEDICARE, OTHER ==
[~2018-07-31] MED LIST changes: -DIGO0.12 PO; +DIGO50SO PO
--- NOTE | 2018-07-31 12:39 | RAD ---
Examination: CT ABDOMEN PELVIS WO CONTRAST History: RLQ PAIN, RENAL COLIC Comparison/Correlation: None Findings: Axial images of the abdomen and pelvis were obtained without contrast. Sagittal and coronal reformatted images provided. Minimal bibasilar costophrenic sulcus atelectasis is present. Minimal left pleural effusion present. Unenhanced liver, spleen, pancreas, adrenal glands, and kidneys are unremarkable. Gallbladder fossa is unremarkable. Suture material involving the cecum is present. Suture material is identified involving the rectum. No extraluminal gas. No obstruction. No inflammatory change about the cecum. There is no appendix identified. Correlate with surgical history. There are no radiopaque collecting system calculi. No hydronephrosis. Urinary bladder is unremarkable. Spinal stimulator device is present. Uterus is atrophic or absent. Multilevel degenerative space narrowing of the low lumbar spine present. L5-S1 intervertebral disc space washer are noted. Impression: No radiopaque collecting system calculi or evidence of obstruction. No inflammatory changes about the cecum. Minimal costophrenic sulcus atelectasis bilaterally. Very small left pleural effusion. Electronically signed by: Devin Ann MD (07/31/2018 12:35 PM) [id number]
== END | disposition home or self-care (01) ==
LOC: CT 11:38
PROVIDERS: ATTEND Family Medicine
DX: N23 Unspecified renal colic (principal); M47.896 Other spondylosis, lumbar region; J98.11 Atelectasis; J90 Pleural effusion, not elsewhere classified
CPT/HCPCS: 74176

== ENCOUNTER → 2019-01-15 | Outpatient (CLI) | payer MEDICARE, OTHER ==
[~2019-01-15] MED LIST changes: -OMEP10CA3 PO; +OMEP10CA4 PO; +OMEP20CA10 PO; -OMEP20CA9 PO; +TRAZ-120 PO; -TRAZ-85 PO
--- NOTE | 2019-01-15 17:16 | RAD ---
Bone densitometry with DEXA examination Indications: screening for postmenopausal osteoporosis. History of lumbar fusion from L3 through L5. COMPARISON: February 24, 2016. Bone Density: -BMD: (g/cm2) - AP Spine Total L1-L2 .......... 1.467 - Total left Hip................. 0.997 - Total right hip.......... 0.939 T-Score: - AP Spine Total L1-L2 ......... 2.5 - Total left Hip................. -0.1 - Total right hip.......... -0.5 Z-Score: - AP Spine Total L1-L2 .......... 3.5 - Total left Hip................. 1.0 - Total right hip........... 0.5 World Health Organization criteria for BMD interpretation classify patients as Normal (T-score at or above -1.0), Osteopenic (T-score between -1.0 and -2.5), or Osteoporotic (T-score at or below -2.5). Impression: 1. AP Spine Total L1-L2--- normal. Not measured previously. 2. Total left Hip--- normal. Not measured previously. 3. Total right hip--- normal. Since the previous study, there has been a decrease of 2%. Electronically signed by: Abhilash Leon MD (01/15/2019 5:12 PM) [facility]
--- NOTE | 2019-01-16 10:44 | RAD ---
DATE: 01/15/2019 EXAM: MAMMO BRIDGET SCREENING BILATERAL HISTORY: Routine screening COMPARISON: 11/17/2014 09/20/2016, 12/25/2017 mammographic exams This study was interpreted with the benefit of Computerized Aided Detection (CAD). Breast Density: SCATTERED The breast parenchyma shows scattered fibroglandular densities. Breast parenchyma level B. FINDINGS: Benign calcifications are present. No new masses or distortion. IMPRESSION: Stable BI-RADS CATEGORY: 1 NEGATIVE RECOMMENDED FOLLOW-UP: 12M 12 MONTH FOLLOW-UP PQRS compliance statement: Patient information was entered into a reminder system with a target due date in one year for the next mammogram. Mammography is a sensitive method for finding small breast cancers, but it does not detect them all and is not a substitute for careful clinical examination. A negative mammogram does not negate a clinically suspicious finding and should not result in delay in biopsying a clinically suspicious abnormality. "Our facility is accredited by the [employer] Mammography Program."
== END | disposition home or self-care (01) ==
LOC: DXRAD 09:33
PROVIDERS: ATTEND Family Medicine
DX: Z12.31 Encounter for screening mammogram for malignant neoplasm of breast (principal); Z13.820 Encounter for screening for osteoporosis; N64.89 Other specified disorders of breast; Z78.0 Asymptomatic menopausal state
CPT/HCPCS: 77063; 77067; 77080

== ENCOUNTER 2019-04-03 16:21 | Observation (INO) | payer MEDICARE, OTHER ==
[~2019-04-03] VITALS: Ht 152.4 cm; Wt 76.4 kg
--- NOTE | 2019-04-03 16:43 | PHYS DOC ---
Past History Past Medical History: COPD, Diabetes, Other Additional Past Medical Histor: CROHN'S DZ Past Surgical History: Appendectomy, Colectomy, Hysterectomy, Other Smoking: Non-smoker Alcohol Use: None Drug Use: None Adult General Chief Complaint Chief Complaint: ABNORMAL LABS HPI HPI Patient is a 73-year-old female sent over from her primary care physician's office due to hypokalemia. She reports feeling weak for the past several weeks. Blood work was obtained early in the month that was returned 2 days ago that showed a low potassium level. Patient came back to the office today after having been instructed to increase her potassium dosing and was noted to have an even lower potassium level today than what was obtained 2 weeks ago. No ability to obtain a magnesium level was present in the office. Patient is currently under treatment for a tongue infection that goes down her throat. She also notes some right ear pain with this. She is not on any diuretics or any medicines that have hypokalemia as a known, common side effect[] Review of Systems Review of Systems Constitutional: Denies fever or chills [] Eyes: Denies change in visual acuity, redness, or eye pain [] HENT: Denies nasal congestion or sore throat , right ear pain as noted in history of present illness[] Respiratory: Denies cough or shortness of breath [] Cardiovascular: No chest pain or palpitations[] GI: Denies abdominal pain, nausea, vomiting, bloody stools or diarrhea (normal stool for her is frequent due to her Crohn's) [] : Denies dysuria or hematuria [] Musculoskeletal: Denies back pain or joint pain [] Integument: Denies rash or skin lesions [] Neurologic: Denies headache, focal weakness or sensory changes [] Endocrine: Denies polyuria or polydipsia [] All other systems were reviewed and found to be within normal limits, except as documented in this note. Allergies Allergies Allergies Coded Allergies Type Severity Reaction Last Updated Verified adalimumab Allergy Unknown 08/24/17 Yes mesalamine Allergy Unknown 08/24/17 Yes Physical Exam Physical Exam Constitutional: Well developed, well nourished, no acute distress, non-toxic appearance. [] HENT: Normocephalic, atraumatic, bilateral external ears normal, oropharynx moist, no oral exudates, nose normal. [] Eyes: PERRLA, EOMI, conjunctiva normal, no discharge. [] Neck: Normal range of motion, no tenderness, supple, no stridor. [] Cardiovascular:Heart rate regular rhythm, no murmur [] Lungs & Thorax: Bilateral breath sounds clear to auscultation [] Abdomen: Bowel sounds normal, soft, no tenderness, no masses, no pulsatile masses. [] Skin: Warm, dry, no erythema, no rash. [] Back: No tenderness, no CVA tenderness. [] Extremities: No tenderness, no cyanosis, no clubbing, ROM intact, 1+ pretibial edema bilateral lower extremities which is symmetric. [] Neurologic: Alert and oriented X 3, normal motor function, normal sensory function, no focal deficits noted. [] Psychologic: Affect normal, judgement normal, mood normal. [] EKG EKG EKG shows a sinus rhythm at 85 bpm, right axis deviation, QTC of 514 ms, no ST e levations. There are anteroseptal T wave inversion. No old EKG is available for comparison. Interpreted by me at 1646[] Radiology/Procedures Radiology/Procedures PROCEDURE: PORTABLE CHEST 1V Chest radiograph 04/03/2019 4:36 PM INDICATION: Weakness COMPARISON: 06/08/2018 TECHNIQUE: Portable upright frontal view of the chest is provided. FINDINGS: The cardiomediastinal silhouette is within normal limits. There are no pleural effusions. There is no pulmonary vascular congestion. There is no pneumothorax. Lower lung zone predominant chronic interstitial changes are present. There is subsegmental atelectasis and/or scarring at the left lung base. Spinal stimulator leads are again noted. No significant osseous abnormality is identified. IMPRESSION: Mild chronic interstitial changes with lower lung zone predominance. There is subsegmental atelectasis or scarring at the left lung base. No definite new airspace consolidation. [] Course & Med Decision Making Course & Med Decision Making Pertinent Labs and Imaging studies reviewed. (See chart for details) ED course: Patient arrived, was placed in bed, and tolerated exam well. She was given oral potassium because of the level from the primary care office while labs were in process. She reported feeling improved after the oral potassium supplementation. After the return of laboratory testing, consultation was made with the hospitalist who graciously accepted. Additional potassium was a dministered via the IV. Findings were discussed with patient and family who voiced understanding. All questions were answered. She was admitted in improved condition. Medical decision making: Patient with hypokalemia requiring additional supplementation. Her blood sugar is elevated but do not believe her to be in diabetic ketoacidosis she is being admitted for further evaluation and treatment.[] Dragon Disclaimer Dragon Disclaimer This electronic medical record was generated, in whole or in part, using a voice recognition dictation system. Departure Departure: Impression: Primary Impression: Hypokalemia Additional Impressions: Poorly controlled diabetes mellitus Crohn's disease Disposition: ADMITTED INPATIENT Admitting Physician: Cristofer Arriola Condition: IMPROVED Referrals: CYDNEY KUMAR MD (PCP) Problem Qualifiers Additional Impressions: Crohn's disease Gastrointestinal tract location: unspecified location Digestive disease complication type: unspecified complication Qualified Codes: K50.919 - Crohn's disease, unspecified, with unspecified complications LINDY GARCIA DO Apr 03, 2019 16:43
[2019-04-03] MEDS ORDERED: POTASSIUM CHLORIDE 20 MEQ TABLET.ER. PO ONE (17:00)
--- NOTE | 2019-04-03 17:20 | RAD ---
Chest radiograph 04/03/2019 4:36 PM INDICATION: Weakness COMPARISON: 06/08/2018 TECHNIQUE: Portable upright frontal view of the chest is provided. FINDINGS: The cardiomediastinal silhouette is within normal limits. There are no pleural effusions. There is no pulmonary vascular congestion. There is no pneumothorax. Lower lung zone predominant chronic interstitial changes are present. There is subsegmental atelectasis and/or scarring at the left lung base. Spinal stimulator leads are again noted. No significant osseous abnormality is identified. IMPRESSION: Mild chronic interstitial changes with lower lung zone predominance. There is subsegmental atelectasis or scarring at the left lung base. No definite new airspace consolidation. Electronically signed by: Adelaide Gibson MD (04/03/2019 5:18 PM) [id number]
[2019-04-03 17:42] LABS: BASO # 0.3 x10^3/uL (0.0-0.2); BASO % 4 % (0-3); EOS # 0.1 x10^3/uL (0.0-0.7); EOS % 2 % (0-3); HEMATOCRIT 29.5 % (36.0-47.0); HEMOGLOBIN 8.4 g/dL (12.0-15.5); LYMPH % 28 % (24-48); MEAN CORPUSCULAR HEMOGLOBIN 17 pg (25-35); MEAN CORPUSCULAR HGB CONC 29 g/dL (31-37); MEAN CORPUSCULAR VOLUME 59 fL (79-100); MONO % 14 % (0-9); NEUT # 3.7 x10^3uL (1.8-7.7); NEUT % 52 % (31-73); PLATELET COUNT 342 x10^3/uL (140-400); RED BLOOD COUNT 4.98 x10^6/uL (3.50-5.40); RED CELL DISTRIBUTION WIDTH 21.4 % (11.5-14.5); WHITE BLOOD COUNT 7.1 x10^3/uL (4.0-11.0)
--- NOTE | 2019-04-03 17:54 | EKG ---
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
[2019-04-03 17:55] LABS: ALBUMIN/GLOBULIN RATIO 0.9 (1.0-1.7); CALCIUM 8.4 mg/dL (8.5-10.1); CREATININE 1.1 mg/dL (0.6-1.0); GFR 48.8; MAGNESIUM 2.2 mg/dL (1.8-2.4); TOTAL BILIRUBIN 0.4 mg/dL (0.2-1.0); TOTAL PROTEIN 6.5 g/dL (6.4-8.2)
[2019-04-03 17:59] LABS: POTASSIUM 2.1 mmol/L (3.5-5.1)
[2019-04-03] MEDS ORDERED: ONDANSETRON PF 4 MG/2 ML VIAL. IV PRN (18:00)
[2019-04-03] MEDS ORDERED: ACETAMINOPHEN 325 MG TABLET PO PRN (18:00)
[2019-04-03] MEDS ORDERED: POTASSIUM CHLORIDE 20MEQ 100 ML IV ONE (18:00)
[2019-04-03] MEDS ORDERED: POTASSIUM CL 40MEQ IN 0.9%NACL 1,000 ML IV ONE (18:00)
[2019-04-03 19:40] VITALS: BP 116/48
[2019-04-03 20:29] LABS: BACTERIA,URINE FEW /HPF (0-FEW); BILIRUBIN,URINE NEG (NEG); CLARITY,URINE CLEAR; COLOR,URINE YELLOW; GLUCOSE,URINE >=1000 mg/dL (NEG); NITRITE,URINE NEG (NEG); RBC,URINE 0 /HPF (0-2); SQUAMOUS EPITHELIAL CELL,UR OCC /LPF; UROBILINOGEN,URINE 0.2 mg/dL (0.2 mg/dL); WBC,URINE OCC /HPF (0-4)
[2019-04-03 22:38] LABS: ANISOCYTOSIS MOD; HYPOCHROMIA MOD; PLT ESTIMATE ADEQUATE (ADEQUATE); POLYCHROMASIA SLIGHT
[2019-04-03] MEDS ORDERED: METR-34 PO (22:55)
[2019-04-03] MEDS ORDERED: INFLECTRA IV (22:55)
[2019-04-03] MEDS ORDERED: LACT460C PO (22:55)
[2019-04-03] MEDS ORDERED: SUCR1TAB PO (22:55)
[2019-04-03] MEDS ORDERED: ALBU2.5V8 INH (22:55)
[2019-04-03] MEDS ORDERED: LIDOCAINE VISCOUS 2% PO (22:55)
[2019-04-03] MEDS ORDERED: TRIA15CR50 TP (22:55)
[2019-04-03] MEDS ORDERED: TRAZ150T49 PO (22:55)
[2019-04-03] MEDS ORDERED: BUDE10.2 IH (22:55)
[2019-04-03] MEDS ORDERED: magic mouthwash PO (22:55)
[2019-04-03] MEDS ORDERED: LEVO75TA5 PO (22:55)
[2019-04-03] MEDS ORDERED: MORP30TA83 PO (22:55)
[2019-04-03] MEDS ORDERED: GLIM2TAB2 PO (22:55)
[2019-04-03] MEDS ORDERED: INSU200I SQ (22:55)
[2019-04-03] MEDS ORDERED: INSU100I13 SQ (22:55)
[2019-04-03] MEDS ORDERED: SULF500T7 PO (22:55)
[2019-04-03] MEDS ORDERED: METO-239 PO (22:55)
[2019-04-03] MEDS ORDERED: DICL100G18 TP (22:55)
[2019-04-03] MEDS ORDERED: NICOTINE 21MG PATCH. TD PRN (23:00)
[2019-04-04] MEDS: TSP PO SCH ×2 (00:34→04:11)
[2019-04-04 05:28] VITALS: BP 118/66
[2019-04-04] MEDS ORDERED: LEVOTHYROXINE 75 MCG TABLET PO SCH (06:00)
[2019-04-04] MEDS ORDERED: DICLOFENAC SODIUM 1% TOPICAL GEL 100GM TUBE. TP SCH (06:00)
[2019-04-04 06:42] LABS: ALBUMIN 2.5 g/dL (3.4-5.0); ALBUMIN/GLOBULIN RATIO 0.9 (1.0-1.7); CALCIUM 7.8 mg/dL (8.5-10.1); CREATININE 0.8 mg/dL (0.6-1.0); GFR 70.5; POTASSIUM 3.3 mmol/L (3.5-5.1); TOTAL BILIRUBIN 0.4 mg/dL (0.2-1.0); TOTAL PROTEIN 5.3 g/dL (6.4-8.2)
[2019-04-04 07:10] LABS: BASO # 0.2 x10^3/uL (0.0-0.2); BASO % 4 % (0-3); EOS # 0.1 x10^3/uL (0.0-0.7); EOS % 2 % (0-3); LYMPH # 1.8 x10^3/uL (1.0-4.8); LYMPH % 37 % (24-48); MEAN CORPUSCULAR HEMOGLOBIN 17 pg (25-35); MEAN CORPUSCULAR HGB CONC 28 g/dL (31-37); MEAN CORPUSCULAR VOLUME 59 fL (79-100); MONO # 0.7 x10^3/uL (0.0-1.1); MONO % 14 % (0-9); NEUT % 43 % (31-73); PLATELET COUNT 274 x10^3/uL (140-400); RED BLOOD COUNT 4.48 x10^6/uL (3.50-5.40); RED CELL DISTRIBUTION WIDTH 21.3 % (11.5-14.5); WHITE BLOOD COUNT 4.7 x10^3/uL (4.0-11.0)
[2019-04-04] MEDS ORDERED: TRIAMCINOLONE ACETONIDE 0.1% TOPICAL CREAM 15GM TUBE. TP PRN (07:15)
[2019-04-04] MEDS ORDERED: PANTOPRAZOLE 40 MG TABLET. PO SCH (07:30)
[2019-04-04] MEDS ORDERED: INSULIN LISPRO 25 UNIT SQ SCH (07:30)
[2019-04-04] MEDS ORDERED: LIDOCAINE 2% VISCOUS 15 ML SOLUTION. SWSW PRN (07:45)
[2019-04-04 07:52] LABS: HEMATOCRIT 26.5 % (36.0-47.0); HEMOGLOBIN 7.7 g/dL (12.0-15.5)
[2019-04-04] MEDS ORDERED: BUDESONIDE 0.5 MG/2 ML NEBU NEB SCH (08:00)
[2019-04-04] MEDS ORDERED: LIDO:MAALOX:BENADRYL 1:1:1 180 ML BOTTLE. PO SCH (08:00)
[2019-04-04] MEDS: ALBUTEROL SULFATE 2.5 MG/3 ML NEBU. NEB SCH ×2 (08:00→09:32)
[2019-04-04] MEDS ORDERED: LIDO:MAALOX:BENADRYL 1:1:1 180 ML BOTTLE. PO PRN ×3 (08:00→08:30)
[2019-04-04] MEDS: PREGABALIN 75 MG CAPSULE PO SCH ×2 (08:34→13:45)
[2019-04-04] MEDS: metroNIDAZOLE 500 MG TABLET PO SCH ×2 (08:35→12:04)
[2019-04-04] MEDS: SUCRALFATE 1 GM TABLET. PO SCH ×2 (08:35→11:19)
[2019-04-04] MEDS: sulfaSALAzine 500 MG TABLET PO SCH ×2 (08:36→13:45)
[2019-04-04] MEDS: INSULIN LISPRO 300 UNITS/3 ML VIAL. SQ SCH ×2 (08:48→12:04)
[2019-04-04] MEDS ORDERED: LACTOBACILLUS RHAMNOSUS GG 1 CAPSULE. PO SCH (09:00)
[2019-04-04] MEDS ORDERED: TAPENTADOL HCL 100 MG PO SCH (09:00)
[2019-04-04] MEDS ORDERED: FLU VAX QS 2019-20 (36MOS+)/PF 0.5 ML SYRINGE. VAX IM ONE (09:00)
[2019-04-04] MEDS ORDERED: NON FORMULARY ITEM (Budesonide/Formoterol Fumarate (Symbicort 160-4.5 Mcg Inhaler) 1 PUFF) IH SCH (09:00)
[2019-04-04] MEDS ORDERED: METOPROLOL SUCC 24HR ER 25 MG TAB.ER.24H. PO SCH (09:00)
[2019-04-04] MEDS ORDERED: DULoxetine HCL 60 MG CAPSULE.DR PO SCH (09:00)
[2019-04-04] MEDS ORDERED: MORPHINE ER 15 MG TABLET.ER PO SCH (09:00)
[2019-04-04] MEDS ORDERED: GLIMEPIRIDE 2 MG TABLET PO SCH (09:00)
[2019-04-04] MEDS ORDERED: ALBUTEROL SULFATE 2.5 MG/3 ML NEBU. NEB PRN (09:45)
[2019-04-04] MEDS ORDERED: BUDESONIDE 0.5 MG/2 ML NEBU NEB PRN (09:45)
[2019-04-04 10:37] VITALS: BP 100/52
[2019-04-04] MEDS ORDERED: POTA20TA4 PO (15:03)
--- NOTE | 2019-04-04 16:29 | SSS ---
ADMIT DATE: HISTORY OF PRESENT ILLNESS: The patient is a 73-year-old female patient who came to the Emergency Room. As she was seen by her primary care physician's office, she reportedly feeling weak for the past several weeks. Blood work was obtained early in the month, was done 2 days ago showed a low potassium level. The patient came back to the office after having been instructed to increase the potassium dosing and was noted to have an even lower potassium level than what was obtained 2 weeks ago and therefore, she was sent to the Emergency Room where she was evaluated. She apparently is not on any diuretics. She denied any nausea or vomiting. Denied any diarrhea; however, later on when the nurse was asked her, she admitted that she is having multiple episodes of diarrhea up to 10 times a day for the last 5 days. She was adamant that she wants to go home. Her potassium has risen from 2.1-3.3 and therefore, the patient was discharged home to follow with her primary care physician, Dr. Leal with a prescription for potassium chloride 20 mEq twice a day. PAST MEDICAL HISTORY: Significant for Crohn's disease, chronic obstructive pulmonary disease, type 2 diabetes. Other medical problems include hyperlipidemia, hypertension, chronic pain syndrome, peripheral neuropathy, gastroesophageal reflux disease and osteoporosis. PAST SURGICAL HISTORY: Significant for appendectomy, colectomy, hysterectomy. FAMILY HISTORY: Noncontributory. SOCIAL HISTORY: She lives at home. She does not smoke, drink alcohol or use any recreational drugs. ALLERGIES: She is allergic to ADALIMUMAB and MESALAMINE. MEDICATIONS: She is currently on following medications: She is on sulfasalazine 1000 mg 3 times a day, metronidazole 500 mg 3 times a day, albuterol sulfate 1 puff every 4-6 hours, atorvastatin calcium 80 mg at bedtime, metoprolol succinate 25 mg once a day, diclofenac sodium 2 grams twice a day, morphine sulfate for MS Contin 15 mg twice a day, Nucynta 100 mg p.o. b.i.d., pregabalin 150 mg 3 times a day, duloxetine 60 mg twice a day, trazodone 150 mg at bedtime, Symbicort 160/4.5 mcg 1 inhalation twice a day, lactobacillus acidophilus for Florajen 460 mg once a day, sucralfate 1 gram 3 times a day before meals. She is on omeprazole 20 mg once a day, Lantus insulin 58 units at bedtime, Humalog insulin 25 units before meals. She is on glimepiride 2 mg once a day, levothyroxine sodium 75 mcg once a day, triamcinolone acetonide cream applied topically twice a day, alendronate for Fosamax 70 mg weekly and Flector 100 mg IV every 8 weeks for arthritis. She is on lidocaine viscous 2% applied topically as needed and Magic mouthwash 1 teaspoon every 4 hours as needed for mouth sores. PHYSICAL EXAMINATION: GENERAL: On arrival to the Emergency Room, the patient looked well and was clearly in no apparent distress, slightly pale, but no jaundice, cyanosis or thyromegaly. No jugular venous distention. No limb edema. VITAL SIGNS: Her heart rate was 76, blood pressure was 100/50, temperature was 98, respiratory rate was 20, and oxygen saturation was 95%. HEAD, EYES, EARS, NOSE AND THROAT: Showed normocephalic, atraumatic. NECK: Supple. HEART: Showed normal first and second heart sounds. No gallop or murmur. CHEST: Clear to auscultation. No crepitation or rhonchi. ABDOMEN: Distended, soft, nontender. NEUROLOGIC: She is awake, alert, responding appropriately. All cranial nerves intact. She moves extremities without difficulty. She ambulates without assistance or assistive devices. LABORATORY DATA: Her white cell count was 7100, hemoglobin 8.4, hematocrit 29.5, MCV 59 and platelet count 342,000. Her prothrombin time was 10.6, INR of 1, aPTT was 25. Her chemistry showed a serum sodium 137, potassium 3.1, chloride 99, bicarbonate 29, anion gap of 9, BUN 9, creatinine 1.1, estimated GFR was 49 mL per minute. Her glucose was 383, calcium was 8.4, magnesium was 2.2. Total bilirubin, AST, ALT, alkaline phosphatase were normal. Total protein was 6.5, albumin 3. Her urinalysis was essentially unremarkable. Her chest x-ray showed mild chronic interstitial changes with lower lung zone predominance. There is subsegmental atelectasis or scarring at the left lung base. No definite new airspace consolidation. The patient was given potassium orally as well as we started her on normal saline with 40 mEq of potassium chloride and she did well. Her potassium has risen to 3.3. As the patient was adamant she wants to go home, a decision was made to discharge her with potassium chloride 20 mEq twice a day and we have explained the importance of following her primary care physician closely to make sure that her potassium remains within acceptable range. DISCHARGE MEDICATIONS: She was discharged home to continue potassium chloride 20 mEq twice a day, albuterol sulfate 1 puff every 4-6 hours, alendronate sodium for Fosamax 70 mg once a week, atorvastatin calcium 80 mg at bedtime, Symbicort 1 puff twice a day, diclofenac sodium for Voltaren gel 2 grams twice a day, duloxetine for Cymbalta 60 mg twice a day, glimepiride 2 mg once a day, Flector 100 mg IV every 8 weeks, Lantus insulin 58 units at bedtime, Humalog insulin 25 units before meals, lactobacillus acidophilus for Florajen 460 mg daily, levothyroxine sodium 75 mcg once a day, lidocaine viscous 2% applied topically as needed. She has Magic mouthwash 1 teaspoon p.o. every 4 hours as needed, metoprolol succinate 25 mg once a day, metronidazole 500 mg 3 times a day, morphine sulfate for MS Contin 50 mg twice a day, omeprazole 20 mg daily, pregabalin for Lyrica 150 mg 3 times a day, sulfasalazine 1000 mg 3 times a day, sucralfate 1 gram 3 times a day, Nucynta 100 mg twice a day. FINAL DISCHARGE DIAGNOSES: Severe hypokalemia, much improved. Apparently, the patient has Crohn's disease with recurrent bouts of diarrhea, up to 10 times for the last 5 days, although she denied that, but admitted to the in-charge nurse. Other medical problems include type 2 diabetes, hypertension, hypothyroidism, Crohn's disease, gastroesophageal reflux disease, and chronic pain syndrome. DEE VILLALOBOS MD DR: LIDIA/brooklynn JOB#: [id number] / [id number]
[2019-04-04] MEDS ORDERED: ATORVASTATIN CALCIUM 20 MG TABLET PO SCH (21:00)
[2019-04-04] MEDS ORDERED: INSULIN GLARGINE HUM REC ANLOG 58 UNIT SQ SCH (21:00)
[2019-04-04] MEDS ORDERED: INSULIN GLARGINE SYRINGE. SQ SCH (21:00)
[2019-04-04] MEDS ORDERED: traZODone 150 MG TABLET. PO SCH (21:00)
== END 2019-04-04 15:30 | disposition home or self-care (01) ==
LOC: ER 16:21 → INTOOBSV 18:04 → 1 SOUTH 18:04 → ER 19:35
PROVIDERS: ADMIT Internal Medicine; ATTEND Internal Medicine
DX: E87.6 Hypokalemia (principal); K50.90 Crohn's disease, unspecified, without complications; K14.0 Glossitis; E11.65 Type 2 diabetes mellitus with hyperglycemia; J44.9 Chronic obstructive pulmonary disease, unspecified; E11.9 Type 2 diabetes mellitus without complications; R19.7 Diarrhea, unspecified; E78.5 Hyperlipidemia, unspecified; I10 Essential (primary) hypertension; G89.4 Chronic pain syndrome; E03.9 Hypothyroidism, unspecified; K21.9 Gastro-esophageal reflux disease without esophagitis; M81.0 Age-related osteoporosis without current pathological fracture; Z90.49 Acquired absence of other specified parts of digestive tract; Z90.710 Acquired absence of both cervix and uterus; Z23 Encounter for immunization
CPT/HCPCS: 36415; 71045; 80053; 81001; 82947; 83735; 83880; 84484; 85025; 85610; 85730; 90471; 90686; 93005; 96365; 96366; 96372; 97162; 97166; 97530; 99284; G0378; J1815; J3480; G0379

== ENCOUNTER 2019-06-05 16:00 | Emergency (ER) | payer MEDICARE, OTHER ==
[~2019-06-05] VITALS: Ht 152.4 cm; Wt 76.2 kg
[~2019-06-05 16:00] MED LIST changes: +ALBU2.5V8 INH; +BUDE10.2 IH; +DICL100G18 TP; -GLIM1TAB2 PO; +GLIM1TAB3 PO; +GLIM2TAB3 PO; +INFLECTRA IV; +INSU200I SQ; +LACT460C PO; +LEVO75TA5 PO; +LIDOCAINE VISCOUS 2% PO; +METO-239 PO; +METR-34 PO; +MORP30TA83 PO; +POTA20TA4 PO; +SUCR1TAB PO; +SULF500T7 PO; +TRAZ150T49 PO; +TRIA15CR50 TP; +magic mouthwash PO
[2019-06-05] MEDS ORDERED: IV NORMAL SALINE 1,000ML 1,000 ML IV ONE (16:30)
--- NOTE | 2019-06-05 16:45 | EKG ---
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
--- NOTE | 2019-06-05 16:46 | PHYS DOC ---
Past History Past Medical History: COPD, Dementia, Diabetes, Fibromyalgia, GERD, High Cholesterol, Hypertension, Hypothyroid Additional Past Medical Histor: CROHN'S DZ Past Surgical History: Appendectomy, Other Additional Past Surgical Histo: abdominal surgery, TENS unit, Back operations, Smoking: Cigarettes Alcohol Use: None Drug Use: None Adult General Chief Complaint Chief Complaint: HEADACHE HPI HPI 73-year-old female presents with report of dizziness Review of Systems Review of Systems Constitutional: Denies fever or chills [] Eyes: Denies change in visual acuity, redness, or eye pain [] HENT: Denies nasal congestion or sore throat [] Respiratory: Denies cough or shortness of breath [] Cardiovascular: No additional information not addressed in HPI [] GI: Denies abdominal pain, nausea, vomiting, bloody stools or diarrhea [] : Denies dysuria or hematuria [] Musculoskeletal: Denies back pain or joint pain [] Integument: Denies rash or skin lesions [] Neurologic: Denies headache, focal weakness or sensory changes [] Endocrine: Denies polyuria or polydipsia [] All other systems were reviewed and found to be within normal limits, except as documented in this note. Current Medications Current Medications Current Medications Medications (Trade) Dose Ordered Sig/Court Start Time Stop Time Status Last Admin Dose Admin Sodium Chloride 1,000 ml @ 1,000 mls/hr 1X ONCE 06/05/19 16:30 06/05/19 17:29 Allergies Allergies Allergies Coded Allergies Type Severity Reaction Last Updated Verified adalimumab Allergy Unknown 08/24/17 Yes mesalamine Allergy Unknown 08/24/17 Yes Physical Exam Physical Exam Constitutional: Well developed, well nourished, no acute distress, non-toxic appearance. [] HENT: Normocephalic, atraumatic, bilateral external ears normal, oropharynx moist, no oral exudates, nose normal. [] Eyes: PERRLA, EOMI, conjunctiva normal, no discharge. [] Neck: Normal range of motion, no tenderness, supple, no stridor. [] Cardiovascular:Heart rate regular rhythm, no murmur [] Lungs & Thorax: Bilateral breath sounds clear to auscultation [] Abdomen: Bowel sounds normal, soft, no tenderness, no masses, no pulsatile masses. [] Skin: Warm, dry, no erythema, no rash. [] Back: No tenderness, no CVA tenderness. [] Extremities: No tenderness, no cyanosis, no clubbing, ROM intact, no edema. [] Neurologic: Alert and oriented X 3, normal motor function, normal sensory func tion, no focal deficits noted. [] Psychologic: Affect normal, judgement normal, mood normal. [] Current Patient Data Vital Signs Vital Signs Date Time Temp Pulse Resp B/P (MAP) Pulse Ox O2 Delivery O2 Flow Rate FiO2 06/05/19 16:35 95 16 121/82 (95) 95 Room Air 06/05/19 16:10 98.6 EKG EKG @1641 NSR at 94bpm, NO ST elevation, baseline artifact, RBBB Radiology/Procedures Radiology/Procedures PROCEDURE: CT HEAD WO CONTRAST CT HEAD WITHOUT RKMQNHPI13/20/2019 4:35 PM Indication: dizziness Comparison: CT head without contrast June 08, 2018 Procedure: Multidetector CT imaging of the head was performed without the administration of contrast. Findings: There is no evidence of acute intracranial hemorrhage. There is no evidence of acute territorial infarction. Global atrophic changes are similar to prior study. Mild patchy periventricular deep white matter hypoattenuation consistent with chronic small vessel disease is similar. Please note that CT is limited for evaluation of acute ischemia. No mass effect or midline shift is identified . The ventricles and basilar cisterns have an appropriate appearance. No abnormal extra-axial fluid collections are seen. No acute osseous changes are identified. Impression: 1. No evidence of acute intracranial abnormality 2. Grossly stable appearance of senescent atrophic changes and evidence of chronic small vessel disease. PQRS Compliance Statement: One or more of the following individualized dose reduction techniques were utilized for this examination: 1. Automated exposure control 2. Adjustment of the mA and/or kV according to patient size 3. Use of iterative reconstruction technique DICTATED AND SIGNED BY: SUE COSTA MD DATE: 06/05/19 1650 Course & Med Decision Making Course & Med Decision Making Pertinent Labs and Imaging studies reviewed. (See chart for details) [] Dragon Disclaimer Dragon Disclaimer This electronic medical record was generated, in whole or in part, using a voice recognition dictation system. Departure Departure: Impression: Primary Impression: Dizziness Additional Impression: Renal insufficiency Disposition: 01 HOME, SELF-CARE Condition: IMPROVED Referrals: CYDNEY KUMAR MD (PCP) Patient Instructions: Chronic Renal Insufficiency, Dizziness, [id number], Aren tigo, [id number] Additional Instructions: Your kidney function (creatnine) was higher than previous. This might be secondary to dehydration. Please increase fluid hydration. Please follow-up closely with your doctor for further evaluation and recheck of labs Scripts Meclizine Hcl (MECLIZINE HCL) 25 Mg Tablet 1 TAB PO PRN TID PRN for DIZZINESS, #14 TAB Prov: PHOENIX BLAIR DO 06/05/19 Problem Qualifiers PHOENIX BLAIR DO Jun 05, 2019 16:46
--- NOTE | 2019-06-05 16:53 | RAD ---
CT HEAD WITHOUT [id number]/20/2019 4:35 PM Indication: dizziness Comparison: CT head without contrast June 08, 2018 Procedure: Multidetector CT imaging of the head was performed without the administration of contrast. Findings: There is no evidence of acute intracranial hemorrhage. There is no evidence of acute territorial infarction. Global atrophic changes are similar to prior study. Mild patchy periventricular deep white matter hypoattenuation consistent with chronic small vessel disease is similar. Please note that CT is limited for evaluation of acute ischemia. No mass effect or midline shift is identified . The ventricles and basilar cisterns have an appropriate appearance. No abnormal extra-axial fluid collections are seen. No acute osseous changes are identified. Impression: 1. No evidence of acute intracranial abnormality 2. Grossly stable appearance of senescent atrophic changes and evidence of chronic small vessel disease. PQRS Compliance Statement: One or more of the following individualized dose reduction techniques were utilized for this examination: 1. Automated exposure control 2. Adjustment of the mA and/or kV according to patient size 3. Use of iterative reconstruction technique
[2019-06-05] MEDS ORDERED: MECLIZINE 12.5 MG TABLET. PO ONE (17:00)
[2019-06-05] MEDS ORDERED: DEXAMETHASONE SOD PHOS 10 MG/ML VIAL IV ONE (17:00)
[2019-06-05 17:41] LABS: BASO # 0.1 x10^3/uL (0.0-0.2); BASO % 1 % (0-3); EOS # 0.4 x10^3/uL (0.0-0.7); EOS % 5 % (0-3); HEMATOCRIT 43.3 % (36.0-47.0); HEMOGLOBIN 13.5 g/dL (12.0-15.5); LYMPH # 3.1 x10^3/uL (1.0-4.8); LYMPH % 39 % (24-48); MEAN CORPUSCULAR HEMOGLOBIN 24 pg (25-35); MEAN CORPUSCULAR HGB CONC 31 g/dL (31-37); MEAN CORPUSCULAR VOLUME 78 fL (79-100); MONO # 0.9 x10^3/uL (0.0-1.1); MONO % 11 % (0-9); NEUT # 3.4 x10^3uL (1.8-7.7); NEUT % 44 % (31-73); PLATELET COUNT 275 x10^3/uL (140-400); RED BLOOD COUNT 5.57 x10^6/uL (3.50-5.40); RED CELL DISTRIBUTION WIDTH 30.3 % (11.5-14.5); WHITE BLOOD COUNT 7.8 x10^3/uL (4.0-11.0)
[2019-06-05 17:57] LABS: BILIRUBIN,URINE NEG (NEG); CLARITY,URINE CLEAR; COLOR,URINE YELLOW; GLUCOSE,URINE NEG (NEG)
[2019-06-05 17:58] LABS: BACTERIA,URINE 0 /HPF (0-FEW); NITRITE,URINE NEG (NEG); RBC,URINE 0 /HPF (0-2); SQUAMOUS EPITHELIAL CELL,UR OCC /LPF; UROBILINOGEN,URINE 0.2 mg/dL (0.2 mg/dL); WBC,URINE 0 /HPF (0-4)
[2019-06-05 18:06] LABS: ALBUMIN 3.4 g/dL (3.4-5.0); ALBUMIN/GLOBULIN RATIO 1.2 (1.0-1.7); ALK PHOS 89 U/L (46-116); ALT (SGPT) 7 U/L (14-59); ANION GAP 9 (6-14); BLOOD UREA NITROGEN 11 mg/dL (7-20); BUN/CREATININE RATIO 7 (6-20); CALCIUM 9.4 mg/dL (8.5-10.1); CARBON DIOXIDE 25 mmol/L (21-32); CHLORIDE 106 mmol/L (98-107); CREATININE 1.5 mg/dL (0.6-1.0); GFR 34.1; GLUCOSE 122 mg/dL (70-99); MAGNESIUM 1.9 mg/dL (1.8-2.4); POTASSIUM 4.9 mmol/L (3.5-5.1); SODIUM 140 mmol/L (136-145); TOTAL BILIRUBIN 0.3 mg/dL (0.2-1.0); TOTAL PROTEIN 6.3 g/dL (6.4-8.2)
[2019-06-05 18:07] LABS: DIG < 0.2 ng/dL (0.9-2.0)
[2019-06-05 18:08] LABS: AST (SGOT) 16 U/L (15-37)
[2019-06-05 18:18] LABS: ANISOCYTOSIS MOD; HYPOCHROMIA SLIGHT; PLT ESTIMATE ADEQUATE (ADEQUATE); STOMATOCYTES PRESENT; TARGET CELLS PRESENT
[2019-06-05 18:19] LABS: MICROCYTOSIS SLIGHT
[2019-06-05] MEDS ORDERED: MECL25TA3 PO (18:21)
[2019-06-05 18:54] VITALS: BP 111/59
== END 2019-06-05 19:25 | disposition home or self-care (01) ==
LOC: ER 16:00
DX: N28.9 Disorder of kidney and ureter, unspecified (principal); R42 Dizziness and giddiness; J44.9 Chronic obstructive pulmonary disease, unspecified; F03.90 Unspecified dementia, unspecified severity, without behavioral disturbance, psychotic disturbance, mood disturbance, and anxiety; E11.9 Type 2 diabetes mellitus without complications; M79.7 Fibromyalgia; K21.9 Gastro-esophageal reflux disease without esophagitis; E78.00 Pure hypercholesterolemia, unspecified; I10 Essential (primary) hypertension; E03.9 Hypothyroidism, unspecified; K50.90 Crohn's disease, unspecified, without complications; F17.210 Nicotine dependence, cigarettes, uncomplicated; Z88.8 Allergy status to other drugs, medicaments and biological substances
CPT/HCPCS: 36415; 70450; 80053; 80162; 81001; 82553; 83735; 84484; 85025; 85610; 85730; 93005; 96361; 96374; 99285; J1100; J8597; J7030

== ENCOUNTER → 2019-09-13 | Outpatient (CLI) | payer MEDICARE, OTHER ==
[~2019-09-13] MED LIST changes: -GLIM1TAB3 PO; +GLIM1TAB7 PO; -GLIM2TAB3 PO; +GLIM2TAB7 PO; +IOHEXOL 240 MG/ML 50ML VIAL. ONE; +IOHEXOL 240 MG/ML 50ML VIAL. PO ONE; +IOHEXOL 300 MG/ML 75 ML VIAL. IV ONE; +MECL-75 PO; -OMEP20CA10 PO; +OMEP20CA16 PO; +TRAZ-125 PO; -TRAZ-86 PO
[2019-09-13 13:39] LABS: CALCIUM 9.2 mg/dL (8.5-10.1); CREATININE 0.7 mg/dL (0.6-1.0); POTASSIUM 4.4 mmol/L (3.5-5.1)
[2019-09-13 13:41] LABS: BASO # 0.3 x10^3/uL (0.0-0.2); BASO % 4 % (0-3); EOS # 0.4 x10^3/uL (0.0-0.7); EOS % 5 % (0-3); HEMATOCRIT 36.3 % (36.0-47.0); HEMOGLOBIN 11.1 g/dL (12.0-15.5); LYMPH # 3.3 x10^3/uL (1.0-4.8); LYMPH % 43 % (24-48); MEAN CORPUSCULAR HEMOGLOBIN 24 pg (25-35); MEAN CORPUSCULAR HGB CONC 31 g/dL (31-37); MEAN CORPUSCULAR VOLUME 79 fL (79-100); MONO # 0.8 x10^3/uL (0.0-1.1); MONO % 10 % (0-9); NEUT % 39 % (31-73); PLATELET COUNT 231 x10^3/uL (140-400); RED BLOOD COUNT 4.61 x10^6/uL (3.50-5.40); RED CELL DISTRIBUTION WIDTH 21.9 % (11.5-14.5); WHITE BLOOD COUNT 7.7 x10^3/uL (4.0-11.0)
[2019-09-13 13:45] LABS: ALBUMIN 3.2 g/dL (3.4-5.0); ALBUMIN/GLOBULIN RATIO 1.1 (1.0-1.7); TOTAL BILIRUBIN 0.3 mg/dL (0.2-1.0); TOTAL PROTEIN 6.1 g/dL (6.4-8.2)
[2019-09-13 13:59] LABS: ANISOCYTOSIS MOD; PLT ESTIMATE ADEQUATE (ADEQUATE); POLYCHROMASIA SLIGHT
[2019-09-13 14:00] LABS: OVALOCYTES OCC; TARGET CELLS OCC; TEAR DROP CELLS OCC
--- NOTE | 2019-09-13 17:52 | RAD ---
CT study of the abdomen and pelvis with contrast Clinical indications: Abdominal pain for 5 days. Nausea and vomiting. History of hysterectomy and appendectomy and hernia surgery and partial small bowel resection. COMPARISON: July 31, 2018. TECHNIQUE:: After IV infusion of 75 cc of Omnipaque 300, helical CT scanning of abdomen and pelvis was performed. GI contrast was administered per mouth. PQRS compliance Statement One or more of the following individualized dose reduction techniques were utilized for this study: 1. Automated exposure control 2. Adjustment of the mA and/or kV according to patient size 3. Use of iterative reconstruction technique FINDINGS: No hepatic mass is seen. The spleen is not enlarged. No pancreatic mass is seen. The gallbladder is normal. No extra hepatic biliary ductal dilatation is seen. No adrenal mass is evident. No hydronephrosis or renal mass is seen on either side. There is scarring involving the upper pole of the right kidney which may be due to chronic pyelonephritis. No perinephric inflammatory change or free fluid is seen. No urinary tract stone or hydroureter is seen. Urinary bladder wall is smooth. No focal aneurysmal dilatation of the abdominal aorta is seen. No enlarged abdominal or pelvic lymphadenopathy is seen. Moderate fecal retention is seen throughout the colon. No significant fecal retention is seen within the rectum. No colonic wall thickening or pericolonic inflammatory change is seen. No obstructive bowel pattern is evident. No bowel wall thickening of the small bowel is seen. There is midline abdominal wall protrusion. There is anterior inferior midline abdominal wall hernia containing antimesenteric side of the adjacent colon and also the dome of the urinary bladder. No free air or free fluid or mesenteric edema is seen. There is mild chronic posterior left lung base atelectasis. Lumbar fusion is seen. Grade 1 anterolisthesis of L4-5 is seen. No lytic process is evident. Degenerative osteoarthritis of both hip joints is seen. IMPRESSION: Chronic pyelonephritis of the upper pole of the right kidney. Prominent anterior midline abdominal wall protrusion. Within the anterior inferior midline of the abdominal wall, focal hernia is seen containing the antimesenteric side of the adjacent colon and the dome of the urinary bladder. No obstructive bowel pattern is evident. No bowel wall thickening is seen. No acute abnormality of the abdomen or pelvis is seen otherwise. Electronically signed by: Abhilash Leon MD (09/13/2019 5:49 PM) [id number]
== END | disposition home or self-care (01) ==
LOC: CT 12:37
PROVIDERS: ATTEND Family Medicine
DX: K43.9 Ventral hernia without obstruction or gangrene (principal); N11.9 Chronic tubulo-interstitial nephritis, unspecified; N28.89 Other specified disorders of kidney and ureter; M43.16 Spondylolisthesis, lumbar region; J98.11 Atelectasis; M16.0 Bilateral primary osteoarthritis of hip
CPT/HCPCS: 36415; 74177; 80053; 85025; Q9966; Q9967

== ENCOUNTER → 2020-01-14 | Outpatient (CLI) | payer MEDICARE, OTHER ==
[~2020-01-14] MED LIST changes: -IOHEXOL 240 MG/ML 50ML VIAL. ONE; -IOHEXOL 240 MG/ML 50ML VIAL. PO ONE; -IOHEXOL 300 MG/ML 75 ML VIAL. IV ONE
--- NOTE | 2020-01-14 10:55 | RAD ---
Chest, PA and Lateral: Technique: PA and lateral views of the chest were obtained. History: Shortness of breath. Comparison: 04/03/2019. Findings: The heart and pulmonary vasculature appear within normal limits. Mild prominent bilateral interstitial lung markings in the bilateral lungs likely chronic interstitial changes. Minimal left lung base airspace opacities.. Impression: Mild prominent bilateral interstitial lung markings likely chronic interstitial changes or interstitial infiltrates.. Electronically signed by: Kody Macdonald MD (01/14/2020 10:52 AM) [id number]
== END | disposition home or self-care (01) ==
LOC: DXRAD 10:30
PROVIDERS: ATTEND Family Medicine
DX: R60.0 Localized edema (principal)
CPT/HCPCS: 71046

== ENCOUNTER → 2020-10-21 | Outpatient (CLI) | payer MEDICARE, OTHER ==
[~2020-10-21] MED LIST changes: -LISI-338 PO; +LISI-517 PO
--- NOTE | 2020-10-21 12:38 | RAD ---
Exam: US DPLX VENOUS EXTREMITY LOWER LT Indication: Reason: LLE PAIN / Spl. Instructions: / History: Technique: Color-flow and pulsed wave duplex ultrasound with compression of venous structures of the left lower extremity. Comparison: None Available. Findings: Duplex ultrasound with compression of the deep venous structures of the left lower extremit y from the common femoral vein through the popliteal vein is negative for DVT. The posterior tibial a nd peroneal veins are segmentally visualized and patent where seen. Normal venous waveforms and augme ntation are noted throughout. Impression: No evidence for DVT in the left lower extremity. Electronically signed by: Aldair Rudolph MD (10/21/2020 12:35 PM) [id number]
== END ==
LOC: US 11:43
PROVIDERS: ATTEND Family Medicine
DX: M79.605 Pain in left leg (principal)
CPT/HCPCS: 93971

== ENCOUNTER → 2020-12-21 | Outpatient (CLI) | payer MEDICARE, OTHER ==
--- NOTE | 2020-12-21 14:29 | RAD ---
EXAM: RIGHT HAND 3 VIEWS. HISTORY: Right hand pain. COMPARISON: 05/19/2016. FINDINGS: There are changes of fusion of the lunate, capitate and hamate. A dorsal plate is fixed by multiple screws. Some lucency along the most distal screw appears chronic. There is chronic irregular ity and volume loss of the lunate. The scaphoid appears to been resected. Radiocarpal osteoarthritis is moderate with small loose bodies. Second and third metacarpophalangeal joint space narrowing is moderate to severe and appears relative ly uniform. There is volar subluxation and mild ulnar deviation at both joints. The first, fourth and fifth metacarpophalangeal joints are relatively preserved with mild osteoarthritis. Deformity at the third distal interphalangeal joint may reflect a chronic fracture or a chronic centr al erosion. Distal interphalangeal osteoarthritis is mild to moderate elsewhere. Proximal interphalan geal osteoarthritis is mild to moderate at the fourth and fifth rays. IMPRESSION: 1. 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 Correlate for a known diagnosis. 2. Resection of the scaphoid with fusion of the remainder of the carpus as above. There appears to be some lucency along one of the screws associated with a dorsal plate. Volume loss of the lunate appea rs chronic. Electronically signed by: Augusta Fernandez MD (12/21/2020 2:26 PM) [id number]
== END ==
LOC: RAD 10:28
PROVIDERS: ATTEND Family Medicine
DX: M19.041 Primary osteoarthritis, right hand (principal)
CPT/HCPCS: 73130

== ENCOUNTER → 2021-02-22 | Outpatient (CLI) | payer MEDICARE, OTHER ==
--- NOTE | 2021-02-22 12:36 | RAD ---
EXAM: RIGHT HAND 3 VIEWS. HISTORY: Fourth digit pain. COMPARISON: 12/21/2020. FINDINGS: There are changes of arthrodesis across the capitate, lunate, hamate and triquetrum. The loulou edith is sclerotic and partially collapsed. The scaphoid appears to have been mostly resected. Radioca rpal osteoarthritis is at least moderate. There is relatively uniform moderate to severe joint space narrowing at the second and third metacarp ophalangeal joints with ulnar deviation. Interphalangeal osteoarthritis is moderate at the third dist al interphalangeal joint and fourth proximal interphalangeal joint. There is some hyperextension at t he fourth proximal interphalangeal joint. It is mild elsewhere. Deformity of the third distal phalanx may be an old posttraumatic deformity or reflect an old erosion. No fractures are identified. Osteopenia is moderate to severe. IMPRESSION: 1. Mild hyperextension at the fourth proximal interphalangeal joint where there is at least moderate osteoarthritis. Correlate to exclude a component of superimposed inflammatory arthritis given history polyarticular findings as above. 2. Carpal arthrodesis with resection of the scaphoid. At least moderate radiocarpal osteoarthritis. Electronically signed by: Augusta Fernandez MD (02/22/2021 12:33 PM) [id number]
== END ==
LOC: RAD 11:35
PROVIDERS: ATTEND Family Medicine
DX: M19.041 Primary osteoarthritis, right hand (principal); M25.841 Other specified joint disorders, right hand; M79.644 Pain in right finger(s); M20.091 Other deformity of right finger(s); Z98.1 Arthrodesis status
CPT/HCPCS: 73130

== ENCOUNTER → 2021-02-23 | Outpatient (CLI) | payer MEDICARE, OTHER ==
--- NOTE | 2021-02-23 13:11 | RAD ---
EXAM: CHEST 2 VIEWS. HISTORY: Weakness. COMPARISON: 01/14/2020. FINDINGS: Frontal and lateral views of the chest are obtained. Blunting of the left costophrenic angle may represent a small pleural effusion or scarring. Increased anteroposterior diameter suggests chronic obstructive pulmonary disease. There are mild bilateral di ffuse interstitial infiltrates, most notable in the left base. There is no pneumothorax. The heart is not enlarged. There are atherosclerotic calcifications of the aorta. Spinal stimulator electrodes an d changes of posterior lumbar fusion are noted. IMPRESSION: 1. Mild diffuse interstitial opacities most notable in the left base. Correlate for atypical pneumoni a or interstitial lung disease superimposed on chronic obstructive pulmonary disease. Electronically signed by: Augusta Fernandez MD (02/23/2021 1:09 PM) [id number]
== END ==
LOC: RAD 10:54
PROVIDERS: ATTEND Family Medicine
DX: R91.8 Other nonspecific abnormal finding of lung field (principal); I70.0 Atherosclerosis of aorta; M43.26 Fusion of spine, lumbar region; R53.1 Weakness
CPT/HCPCS: 71046